=== PATIENT | female | born 1950 ===

== ENCOUNTER 2017-04-26 14:11 | Inpatient (IN) | payer MEDICARE, OTHER ==
[2017-04-26 14:11] VITALS: BMI 27.3
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
--- NOTE | 2017-04-26 18:24 | RAD ---
HISTORY: admit COMPARISON: Two FINDINGS: LUNGS: No active pulmonary disease. PLEURA: No significant pleural effusion identified, no pneumothorax apparent. CARDIOVASCULAR: Normal. OSSEOUS STRUCTURES: No significant abnormalities. VISUALIZED UPPER ABDOMEN: Normal. OTHER FINDINGS: None. IMPRESSION: No active disease.
[2017-04-26 18:34] LABS: BASO % 0.5 % (0.0-2.0); EOS # 0.1 K/uL (0.0-0.7); EOS % 1.7 % (0.0-4.0); HEMOGLOBIN 11.6 g/dL (12.0-16.0); LYMPH # 1.3 K/uL (1.0-4.3); LYMPH % 14.4 % (20.0-40.0); MEAN CELL VOLUME 79.9 fl (81.0-99.0); MEAN CORPUSCULAR HEMOGLOBIN 24.5 pg (27.0-31.0); MEAN CORPUSCULAR HGB CONC 30.7 g/dL (33.0-37.0); MEAN PLATELET VOLUME 10.5 fl (7.2-11.7); MONO # 0.6 K/uL (0.0-0.8); MONO % 7.2 % (0.0-10.0); NEUT # 6.7 K/uL (1.8-7.0); NEUT % 76.2 % (50.0-75.0); RBC 4.74 Mil/uL (3.80-5.20); RED CELL DISTRIBUTION WIDTH 16.2 % (11.5-14.5); WHITE BLOOD COUNT 8.7 K/uL (4.8-10.8)
[2017-04-26 18:49] LABS: ALB/GLOB RATIO 1.3 (1.0-2.1); ALBUMIN 3.5 g/dL (3.5-5.0); ALT/SGPT 41 U/L (9-52); AST/SGOT 30 U/L (14-36); BLOOD UREA NITROGEN 15 mg/dl (7-17); CALCIUM 9.7 mg/dL (8.4-10.2); GFR AFRICAN-AMERICAN > 60; GFR NON-AFRICAN AMERICAN > 60
--- NOTE | 2017-04-26 20:20 | ED PDOC ---
- Laboratory Results Result Diagrams: 04/26/17 18:29 04/26/17 18:29 - ECG O2 Sat by Pulse Oximetry: 99 - Progress ED Course And Treament: 1999 Signed out to me pending urine. 2130 Pt. evaluated by crisis and arrangements made for admission. UA showed large leuks in urine. Cipro 500mg PO ordered. Disposition - Clinical Impression Clinical Impression: Depression - POA Present On Arrival: None - Disposition Disposition: Admitted as In-Patient Disposition Time: 21:30 Condition: STABLE Forms: [facility] (Wolof)
[2017-04-26 21:05] LABS: BARBITURATES, UR NEGATIVE (NEGATIVE); BENZODIAZEPINES, UR NEGATIVE (NEGATIVE); OPIATES, UR NEGATIVE (NEGATIVE); PHENCYCLIDINE, UR NEGATIVE (NEGATIVE); SQUAMOUS EPITHIAL < 1 /hpf (0-5); URINE BACTERIA OCC (<OCC); URINE BILIRUBIN NEGATIVE (NEGATIVE); URINE BLOOD SMALL (NEGATIVE); URINE CLARITY CLOUDY (Clear); URINE COLOR YELLOW (YELLOW); URINE GLUCOSE (UA) NEG (Normal); URINE LEUKOCYTE ESTERASE LARGE Leu/uL (Negative); URINE NITRATE NEGATIVE (NEGATIVE); URINE PROTEIN NEGATIVE (NEGATIVE); URINE UROBILINOGEN 0.2-1.0 mg/dL (0.2-1.0)
[2017-04-26 22:53] VITALS: O2SAT 97
[2017-04-27] MEDS ORDERED: Alum-Mag Hydrox-Simethicone Susp (30 mL) PO PRN (00:26)
[2017-04-27] MEDS ORDERED: Magnesium Hydroxide Susp 30 ml UD PO PRN (00:26)
[2017-04-27] MEDS ORDERED: Bismuth Subsalicylate 262 mg/15 ml Sus (240 ml) PO PRN (00:26)
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
[2017-04-27 09:00] LABS: IRON 74 ug/dL (37-170)
[2017-04-27 09:12] LABS: % IRON SATURATION 27 % (20-55); TOTAL IRON BINDING CAPACITY 273 ug/dL (250-450)
[2017-04-27] MEDS ORDERED: Influenza Vaccine 18yr & older 0.5 ML/45 MCG SYR IM ONE (10:00)
--- NOTE | 2017-04-27 19:33 | CARD ---
APPROVED REPORT EKG Measurement Heart [id number] <Conclusion> Normal sinus rhythm Normal ECG
[2017-04-28 07:07] LABS: BLOOD UREA NITROGEN 7 mg/dl (7-17); GFR AFRICAN-AMERICAN > 60; GFR NON-AFRICAN AMERICAN > 60; HDL CHOLESTEROL 80 MG/DL (30-70)
[2017-04-28 07:17] LABS: LDL CHOLESTEROL 53 mg/dL (0-129)
[2017-04-28 07:23] LABS: T4 11.3 ug/dl (5.5-11.0)
--- NOTE | 2017-04-28 14:06 | PCM.PYCHPN ---
Psychiatric Progress Note - Psychiatric Progress Note Patient seen today, length of contact: pt seen and evaluated Patient Chief Complaint: pt has remained very depressed with a very sad affect..pt is also very anxious and gets restless at times Medication Change: No Medical Record Reviewed: Yes Mental Status Examination - Cognitive Function Orientation: Person, Place Memory: Intact Attention: Poor Concentration: Poor Association: WNL Fund of Knowledge: WNL - Mood Mood: Depressed, Anxious - Speech Speech: Appropriate - Suicidal Ideation Suicidal Ideation: No - Homicidal Ideation Homicidal Ideation: No Goal/Treatment Plan - Goal/Treatment Plan Progress Toward Problem(s) and Goals/Treatment Plan: will continue to titrate meds and increase celexa to 20 mg daily to stabilize the anxiety and depression. and engage pt in unit regimen.
[2017-04-28 22:23] LABS: FOLATE 10.6 ng/mL
--- NOTE | 2017-04-29 09:45 | PCM.PYCHPN ---
Psychiatric Progress Note - Psychiatric Progress Note Patient seen today, length of contact: Patient evaluated, case discussed with team, chart reviewed Patient Chief Complaint: "I'm depressed." Problems Identified/Issues Discussed: Patient reports that she feels depressed and anxious. She expressed wishes that she would and expressed ideation to overdose on pills. Patient was able to contract for safety at this time. She also reported intermittent visual hallucinations of evil shadows that stare at her. We discussed starting the patient back on Lexapro, which she took in the past for depression. We also discussed starting Risperdal for psychosis and Klonopin for anxiety. Patient believes her primary issue is her nerves. Medication Change: Yes (Start Lexapro 10 mg PO Daily, Risperdal 0.5 mg PO HS, Klonopin 0.25 mg Q12) Medical Record Reviewed: Yes Consults ordered or reviewed: Medicine consult Mental Status Examination - Cognitive Function Orientation: Person, Place, Situation, Time Memory: Intact Attention: Poor Concentration: Poor Association: WNL Fund of Knowledge: WNL Decription of patient's judgement and insights: Poor I/J - Mood Mood: Depressed, Anxious - Affect Affect: Depressed, Other (Labile) - Speech Speech: Appropriate - Formal Thought Process Formal Thought Process: Hallucinations, Paranoia Psychotic Thoughts and Behaviors: +Paranoia, +Intermittent VH - Suicidal Ideation Suicidal Ideation: Yes Plan: Overdose on pills - Homicidal Ideation Homicidal Ideation: No Goal/Treatment Plan - Goal/Treatment Plan Need for Continued Stay: Remain at risks for inpatient hospitalization, Severe depression anxiety, Discharge may exacerbated symptoms, Severe functional impairment Progress Toward Problem(s) and Goals/Treatment Plan: Major Depressive Disorder w/ Psychotic features; MARYJO; r/o schizoaffective disorder; patient needs acute inpatient hospitalization for treatment and safety -Start Lexapro 10 mg PO Daily, Klonopin 0.25 mg PO Q12, Risperdal 0.5 mg PO HS; r/b/se reviewed with patient -Medicine consult -Individual and group therapy -Psychoeducation -Disposition planning Estimated Date of D/C: 05/06/17 - Smoking Cessation Smoking Cessation Initiated: No Reason for not providing: Not indicated
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
[2017-04-30] MEDS ORDERED: Trimethobenzamide 200 mg/2 mL Inj IM ONE (00:17)
--- NOTE | 2017-04-30 09:51 | PCM.PYCHPN ---
Psychiatric Progress Note - Psychiatric Progress Note Patient seen today, length of contact: Patient evaluated, case discussed with team, chart reviewed Patient Chief Complaint: "I'm depressed." Problems Identified/Issues Discussed: Patient reports that she continues to feel depressed and anxious. She denies current ideation to harm herself or others. She denies current paranoia, but she continues to have bizarre affect at times. Patient reported chest pain this morning, had stat EKG and labs currently pending. Will be seen and evaluted by hospital medical assistant. Medication Change: No Medical Record Reviewed: Yes Consults ordered or reviewed: Medicine consult Mental Status Examination - Cognitive Function Orientation: Person, Place, Situation, Time Memory: Intact Attention: Poor Concentration: Poor Association: WNL Fund of Knowledge: WNL Decription of patient's judgement and insights: Poor I/J - Mood Mood: Depressed, Anxious - Affect Affect: Depressed - Speech Speech: Appropriate - Formal Thought Process Formal Thought Process: Paranoia Psychotic Thoughts and Behaviors: +Paranoia - Suicidal Ideation Suicidal Ideation: No - Homicidal Ideation Homicidal Ideation: No Goal/Treatment Plan - Goal/Treatment Plan Need for Continued Stay: Remain at risks for inpatient hospitalization, Severe depression anxiety, Discharge may exacerbated symptoms, Severe functional impairment Progress Toward Problem(s) and Goals/Treatment Plan: Major Depressive Disorder w/ Psychotic features; MARYJO; r/o schizoaffective disorder; patient needs acute inpatient hospitalization for treatment and safety -Continue Lexapro 10 mg PO Daily, Klonopin 0.25 mg PO Q12, Risperdal 0.5 mg PO HS; r/b/se reviewed with patient -Medicine consult -Individual and group therapy -Psychoeducation -Disposition planning Estimated Date of D/C: 05/06/17 - Smoking Cessation Smoking Cessation Initiated: No Reason for not providing: Not indicated
[2017-04-30 10:28] LABS: BASO % 0.4 % (0.0-2.0); EOS % 0.5 % (0.0-4.0); MEAN CORPUSCULAR HEMOGLOBIN 24.7 pg (27.0-31.0); MEAN CORPUSCULAR HGB CONC 31.8 g/dL (33.0-37.0); MEAN PLATELET VOLUME 9.9 fl (7.2-11.7); MONO # 0.7 K/uL (0.0-0.8); MONO % 6.6 % (0.0-10.0); NEUT # 8.3 K/uL (1.8-7.0); NEUT % 82.5 % (50.0-75.0); NRBC % 0.1 % (0.0-0.0); RBC 5.28 Mil/uL (3.80-5.20); RED CELL DISTRIBUTION WIDTH 15.2 % (11.5-14.5)
[2017-04-30 10:33] LABS: MEAN CELL VOLUME 77.7 fl (81.0-99.0)
[2017-04-30 10:50] LABS: BLOOD UREA NITROGEN 6 mg/dl (7-17); CALCIUM 9.5 mg/dL (8.4-10.2); GFR AFRICAN-AMERICAN > 60; GFR NON-AFRICAN AMERICAN > 60
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
--- NOTE | 2017-05-01 11:40 | CARD ---
APPROVED REPORT EKG Measurement Heart [id number] <Conclusion> Sinus rhythm with marked sinus arrhythmia Otherwise normal ECG
[2017-05-01] MEDS ORDERED: Bismuth Subsalicylate 262 mg/15 ml Sus (240 ml) PO PRN (13:52)
[2017-05-01] MEDS ORDERED: Magnesium Hydroxide Susp 30 ml UD PO PRN (13:52)
[2017-05-01] MEDS ORDERED: Alum-Mag Hydrox-Simethicone Susp (30 mL) PO PRN (13:52)
--- NOTE | 2017-05-01 13:54 | PCM.PSYCH ---
Initial Psychiatric Evaluation - Initial Psychiatric Evaluation Type of Admission: Voluntary Legal Status: Capacity, Guardian Chief Complaint (in patient's own words): "I'm depressed." Patient's Reaction to Hospitalization: 66 year old female patient with PMHx of HTN, was initially admitted to the psychiatry unit for depression w/ psychosis, then transferred to the medical unit after she had chest pain and hyponatremia and then was transferred back to the psychiatry unit for continued treatment of her depression w/ psychosis. She denies current ideation to harm herself but continues to report severe depression. PMHx: HTN PSHx: x 2 Allergies: Tetracycline, Olanzapine, Doxepin SHx: Denies of smoking, EtOH or illicit drug usage Current Medications: Active Medications Generic Name Dose Route Start Last Admin Trade Name Freq PRN Reason Stop Dose Admin Acetaminophen 650 mg 05/01/17 13:52 Tylenol 325mg Tab PO Q4 PRN Pain, moderate (4-7) Al Hydrox/Mg Hydrox/Simethicone 30 ml 05/01/17 13:52 Maalox Plus 30 Ml PO Q4 PRN Dyspepsia Amlodipine Besylate 5 mg 04/29/17 14:30 04/30/17 08:43 Norvasc PO 5 mg DAILY ZECHARIAH Administration Bismuth Subsalicylate 524 mg 05/01/17 13:52 Pepto-Bismol PO Q4 PRN Diarrhea Clonazepam 0.25 mg 04/29/17 21:00 04/30/17 08:44 Klonopin PO 0.25 mg Q12 ZECHARIAH Administration Escitalopram Oxalate 10 mg 04/30/17 09:00 04/30/17 08:45 Lexapro PO 10 mg DAILY ZECHARIAH Administration Lorazepam 0.5 mg 04/27/17 00:26 Ativan PO 05/11/17 00:27 Q6 PRN Anixety/Agitation Lorazepam 0.5 mg 05/01/17 13:52 Ativan PO 05/15/17 13:53 Q6 PRN Anixety/Agitation Magnesium Hydroxide 30 ml 05/01/17 13:52 Milk Of Magnesia PO HS PRN Constipation Risperidone 0.5 mg 04/29/17 22:00 04/29/17 21:23 Risperdal Tab PO 0.5 mg HS ZECHARIAH Administration Past Psychiatric History - Past Psychiatric History Prior Professional Help: Outpatient psychiatric treatment Pertinent Medical Hx (Current Medical&Sleep Prob, Allergies): Allergies Allergy/AdvReac Type Severity Reaction Status Date / Time doxepin [From Sinequan] Allergy RASH Verified 04/30/17 11:25 olanzapine [From Zyprexa] Allergy RASH Verified 04/30/17 11:25 Tetracyclines Allergy RASH Verified 04/30/17 11:25 Escitalopram [Lexapro] 10 mg PO DAILY tab 04/30/17 LORazepam [Ativan] 0.5 mg PO Q6H PRN 04/30/17 amLODIPine [Norvasc] 5 mg PO DAILY tab 04/30/17 clonazePAM [Klonopin] 0.25 mg PO Q12 tab 04/30/17 risperiDONE [RisperDAL Tab] 0.5 mg PO HS tab 04/30/17 Ondansetron ODT [Zofran ODT] 4 mg PO Q6H PRN #30 odt 05/01/17 Review of Systems - Psychiatric Psychiatric: As Per HPI, Abnormal Sleep Pattern, Anhedonia, Anxiety, Depression , Difficulty Concentrating, Irritability, Suicidal Ideation Mental Status Examination - Personal Presentation Personal Presentation: Looks older than stated age - Affect Affect: Constricted, Depressed - Motor Activity Motor Activity: Calm - Reliability in Providing Information Reliability in Providing Information: Poor, due to altered mood - Speech Speech: Coherent - Mood Mood: Depressed - Formal Thought Process Formal Thought Process: Paranoia - Hallucinations/Delusions Additional comments: +Paranoia - Obsessions/Compulsions Obsessions: No Compulsions: No - Cognitive Functions Orientation: Person, Place, Situation, Time Attention/Concentration: Attentive Judgement: Intact, as evidence by: Insight regarding need for hospitalization Memory: Recent intact, as evidence by: Ability to recall events of the day - Risk Risk: Suicidal, Diminished functioning - Strength & Assets Inventory Strength & Assets Inventory: Cooperative - Limitations Limitations: Other (Homelessness, Poverty) DSM 5 DX - DSM 5 DSM 5 Diagnosis: Major Depressive Disorder w/ psychosis - Recommended/Plan of Treatment Treatment Recommendations and Plan of Treatment: Major Depressive Disorder w/ Psychotic features; MARYJO; r/o schizoaffective disorder -Hold Lexapro -Increase Risperdal to 1 mg PO HS -Continue Klonopin 0.25 mg PO Q12 -Medicine consult -Individual and group therapy -Follow-up Na levels - Smoking Cessation Smoking Cessation Initiated: No Reason for not providing: Not indicated
[2017-05-01] MEDS ORDERED: Sodium Chloride 0.9% 1,000 ML IV SCH (14:15)
[2017-05-01 19:37] LABS: BLOOD UREA NITROGEN 6 mg/dl (7-17); CALCIUM 9.1 mg/dL (8.4-10.2); GFR AFRICAN-AMERICAN > 60; GFR NON-AFRICAN AMERICAN > 60
--- NOTE | 2017-05-01 21:31 | CP.PCM.PN ---
Subjective - Date & Time of Evaluation Date of Evaluation: 05/01/17 Time of Evaluation: 21:31 - Subjective Subjective: Called to evaluate this patient with chest pain and elevated blood pressures Pain at left chest constant, non radiating, 10/10 intensity Exam: General: Awake, alert, No respiratory distress Resp: Clear CVS: S1 S2 RRR Abd: Flat, Soft Nontender Ext: no edema Neuro: Non focal EKG: Sinus rhythm with sinus Arrhythmia 98/min - Troponin: 0.0370 - CPK : 189 A&P #. Chest Pain of angina type r/o ACS - Sublingual NG given and the pain was relieved with mild headache as adverse effect. - Troponin was negative - Decision made to place nitro paste 0.5inch to anterior chest wall. If no further Pain the patient could be placed on Nitro patch daily. #: Elevated Blood pressure which was combination of patient being hypertensive and the pain. with the relief of the pain, the Blood pressure decreased Walter Coburn MD Objective - Vital Signs/Intake and Output Vital Signs (last 24 hours): Temp Pulse Resp BP Pulse Ox 98.1 F 100 H 18 129/80 97 05/01/17 15:08 05/01/17 15:08 05/01/17 15:08 05/01/17 15:08 04/26/17 22:53 - Medications Medications: Current Medications Acetaminophen (Tylenol 325mg Tab) 650 mg PO Q4 PRN PRN Reason: Pain, moderate (4-7) Al Hydrox/Mg Hydrox/Simethicone (Maalox Plus 30 Ml) 30 ml PO Q4 PRN PRN Reason: Dyspepsia Amlodipine Besylate (Norvasc) 5 mg PO DAILY COUNTS INCLUDE 234 BEDS AT THE [facility] Last Admin: 04/30/17 08:43 Dose: 5 mg Bismuth Subsalicylate (Pepto-Bismol) 524 mg PO Q4 PRN PRN Reason: Diarrhea Clonazepam (Klonopin) 0.25 mg PO Q12 COUNTS INCLUDE 234 BEDS AT THE [facility] Last Admin: 04/30/17 08:44 Dose: 0.25 mg Escitalopram Oxalate (Lexapro) 10 mg PO DAILY COUNTS INCLUDE 234 BEDS AT THE [facility] Last Admin: 04/30/17 08:45 Dose: 10 mg Ceftriaxone Sodium 1,000 mg/ (Sodium Chloride) 100 mls @ 100 mls/hr IVPB DAILY COUNTS INCLUDE 234 BEDS AT THE [facility] PRN Reason: Protocol Stop: 05/04/17 09:01 Lorazepam (Ativan) 0.5 mg PO Q6 PRN PRN Reason: Anixety/Agitation Stop: 05/15/17 13:53 Magnesium Hydroxide (Milk Of Magnesia) 30 ml PO HS PRN PRN Reason: Constipation Ondansetron HCl (Zofran Odt) 4 mg PO Q8H PRN PRN Reason: Nausea/Vomiting Risperidone (Risperdal Tab) 1 mg PO HS ZECHARIAH - Labs Labs: 04/30/17 10:24 05/01/17 19:00
[2017-05-01] MEDS ORDERED: Nitroglycerin 2% Ointment Foilpak UD TOP STA (21:33)
[2017-05-01 23:04] LABS: TROPONIN I 0.037 ng/mL (0.00-0.120)
[2017-05-02 05:43] VITALS: BP 147/92; PULSE 87; RESP 19; TEMP 97.2
[2017-05-02 07:28] LABS: ALB/GLOB RATIO 1.2 (1.0-2.1); ALBUMIN 3.6 g/dL (3.5-5.0); ALT/SGPT 28 U/L (9-52); AST/SGOT 26 U/L (14-36); BLOOD UREA NITROGEN 6 mg/dl (7-17); CALCIUM 9.2 mg/dL (8.4-10.2); GFR AFRICAN-AMERICAN > 60; GFR NON-AFRICAN AMERICAN > 60
[2017-05-02 07:49] LABS: HEMOGLOBIN 12.9 g/dL (12.0-16.0); MEAN CELL VOLUME 77.9 fl (81.0-99.0); MEAN CORPUSCULAR HEMOGLOBIN 24.6 pg (27.0-31.0); MEAN CORPUSCULAR HGB CONC 31.6 g/dL (33.0-37.0); RBC 5.24 Mil/uL (3.80-5.20); RED CELL DISTRIBUTION WIDTH 15.3 % (11.5-14.5); WHITE BLOOD COUNT 12.6 K/uL (4.8-10.8)
[2017-05-02] MEDS ORDERED: Nitroglycerin 0.1 mg/hr Top Patch TD SCH (09:00)
[2017-05-02] MEDS ORDERED: Sodium Chloride 0.9% 1,000 ML IV SCH (09:15)
--- NOTE | 2017-05-02 09:23 | PCM.PYCHDC ---
Mental Status Examination - Mental Status Examination Orientation: Person, Place, Situation, Time Mood: Depressed Affect: Constricted, Depressed Description of patient's judgement and insight: Poor I/J Psychotic Thoughts and Behaviors: +Paranoia Suicidal Ideation: No Current Homicidal Ideation?: No Discharge Summary - Discharge Note Reason for Hospitalization: 66 year old female patient with PMHx of HTN, was initially admitted to the psychiatry unit for depression w/ psychosis, then transferred to the medical unit after she had chest pain and hyponatremia and then was transferred back to the psychiatry unit for continued treatment of her depression w/ psychosis. She denies current ideation to harm herself but continues to report severe depression. PMHx: HTN PSHx: x 2 Allergies: Tetracycline, Olanzapine, Doxepin SHx: Denies of smoking, EtOH or illicit drug usage Laboratory Data: Abnormal Lab Results 05/01/17 05/01/17 05/02/17 19:00 22:30 06:15 WBC 12.6 H RBC 5.24 H Hgb 12.9 Hct 40.8 MCV 77.9 L MCH 24.6 L MCHC 31.6 L RDW 15.3 H Plt Count 180 Sodium 125 L Potassium 3.9 Chloride 91 L Carbon Dioxide 24 Anion Gap 14 BUN 6 L Creatinine 0.6 L Est GFR ( Amer) > 60 Est GFR (Non-Af Amer) > 60 Random Glucose 162 H Serum Osmolality Calcium 9.1 Total Bilirubin AST ALT Alkaline Phosphatase Total Creatine Kinase 189 H Troponin I 0.0370 Total Protein Albumin Globulin Albumin/Globulin Ratio Ur Random Sodium Ur Random Potassium 05/02/17 05/02/17 05/02/17 06:15 06:15 08:52 WBC RBC Hgb Hct MCV MCH MCHC RDW Plt Count Sodium 122 L Potassium 4.2 Chloride 90 L Carbon Dioxide 22 Anion Gap 14 BUN 6 L Creatinine 0.6 L Est GFR ( Amer) > 60 Est GFR (Non-Af Amer) > 60 Random Glucose 116 H Serum Osmolality 254 L Calcium 9.2 Total Bilirubin 1.1 AST 26 ALT 28 Alkaline Phosphatase 64 Total Creatine Kinase Troponin I < 0.0120 Total Protein 6.6 Albumin 3.6 Globulin 3.0 Albumin/Globulin Ratio 1.2 Ur Random Sodium 166 Ur Random Potassium 37.2 Consultations:: List each consultation separately and include: 1. Reason for request. 2. Findings. 3. Follow-up Consultations: Medicine consult Summary of Hospital Course include:: 1. Description of specific treatment plan utilized for patients during their course of treatmen. 2. Summarize the time- course for resolution of acute symptoms and/or regressed behaviors. 3. Describe issues identified and worked on during hospitalization. 4. Describe medication utilized. 5. Describe medical problems identified and treated. 6. Reassessment of suicide risk Summary of Hospital Course: Patient had REAL ESTATE ANALYST for chest pain and worsening hyponatremia, will be transferred back to the medical unit for continued treatment. Will stop all psychiatric medications at this time. - Diagnosis (1) Major depressive disorder Current Visit: Yes Status: Chronic - Final Diagnosis (DSM 5) Condition upon Discharge: STABLE DSM 5: Major Depressive Disorder w/ psychotic features Disposition: Trans to Other Acute Care Hosp Follow-up Treatment Plan: Major Depressive Disorder w/ Psychotic features; MARYJO; r/o schizoaffective disorder Patient had [employer] ESTATE ANALYST for chest pain and worsening hyponatremia, will be transferred back to the medical unit for continued treatment. Will stop all psychiatric medications at this time. - Smoking Cessation Smoking Cessation Medication prescribed: No Reason for not providing: Not indicated - Antipsychotic Medications Pt discharged on 2 or more routine antipsychotic medications: No
[2017-05-02 09:28] LABS: HEMOGLOBIN 13.5 g/dL (12.0-16.0); MEAN CELL VOLUME 78.1 fl (81.0-99.0); MEAN CORPUSCULAR HEMOGLOBIN 24.6 pg (27.0-31.0); MEAN CORPUSCULAR HGB CONC 31.5 g/dL (33.0-37.0); RBC 5.47 Mil/uL (3.80-5.20); RED CELL DISTRIBUTION WIDTH 15.4 % (11.5-14.5); WHITE BLOOD COUNT 12.7 K/uL (4.8-10.8)
[2017-05-02 09:38] LABS: INR 0.9 (0.9-1.2); PROTHROMBIN TIME 10.2 Seconds (9.8-13.1)
[2017-05-02 09:39] LABS: PARTIAL THROMBOPLASTIN TIME 28.6 Seconds (25.6-37.1)
[2017-05-02 09:46] LABS: ALB/GLOB RATIO 1.4 (1.0-2.1); ALBUMIN 4.1 g/dL (3.5-5.0); ALT/SGPT 36 U/L (9-52); AST/SGOT 25 U/L (14-36); BLOOD UREA NITROGEN 6 mg/dl (7-17); CALCIUM 9.8 mg/dL (8.4-10.2); GFR AFRICAN-AMERICAN > 60; GFR NON-AFRICAN AMERICAN > 60
--- NOTE | 2017-05-02 09:49 | PCM.RRT ---
<Schuyler Kyle - Last Filed: 05/02/17 10:04> ULTIMATE [employer]OPS REFEREE Nurse Assessment - Situation ULTIMATE HOOPS REFEREE Responder Arrival Time: 08:58 ULTIMATE HOOPS REFEREE Reason for Call: Chest Pain, Hypertension ULTIMATE HOOPS REFEREE Called By: RN I.Reason for ULTIMATE HOOPS REFEREE - A) Acute Change in Patient: (Select all that apply): Chest Pain Subjective: ULTIMATE HOOPS REFEREE Time: 08:58 ULTIMATE HOOPS REFEREE Arrival Time: 08:59 ULTIMATE HOOPS REFEREE Location: [facility]- S: ULTIMATE HOOPS REFEREE was called by RN on a 66 y/o F who was complaining of chest pain and vomiting. Pt was found lying on bed, in supine position with a nurses holding a bucket containing non-bloody watery vomit. A per nurse, pt has been complaining of nausea for the past few days with very few episodes of vomiting that consisted of clear saliva-like liquid in very scant quantity. -Pt was admitted to psychiatry rehabilitation unit for severe depression with psychotic features. Serum sodium has been low for the past few days. O: >Vitals signs: BP 197/133, HR 105, Sat O2 99%. >PE: -HEENT: atraumatic, normocephalic, moist mucous membrane. -CV: RRR, S1 and S2 present. -Lungs: CTAB. -ABD: soft, non-distended, tenderness on RUQ and epigastric area, NO guarding or rebound tenderness. -EXT: NO cyanosis, NO edema, pulses 2+ bilaterally on radial and pedal areas. -NEURO: Pt alert, responsive and verbal at all times. ULTIMATE HOOPS REFEREE Interventions: - EKG ordered, showed no acute changes or difference with previous one from yesterday. - CBC, CMP, serum osmolality, troponin, PT/INR, PTT, TSH, urine culture, urine electrolytes, urine osmolality, - NSS 0.9% at 100 mL/hr initiated. VS at 09:14 => BP 167/105, HR 87, sat O2 100%. 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 -All psychiatric medication on HOLD. -Pt transferred to ER for further medical evaluation. -F/U labs. -F/U symptoms. ULTIMATE HOOPS REFEREE End time: 09:21 ULTIMATE HOOPS REFEREE Leader: Dr Childs. ULTIMATE HOOPS REFEREE Residents: Kia PGY-2, Mitch PGY-1, Anabella PGY-1 <Nicolle Childs - Last Filed: 05/02/17 18:51> ULTIMATE HOOPS REFEREE Nurse Assessment - Vital Signs Vital Signs: Rapid Response Vital Sign Blood Pressure 167/105 Pulse Rate 80 Respiratory Rate 16 Temperature 98.1 F Oxygen Saturation 100 - Vital Signs at end of ULTIMATE HOOPS REFEREE Vital Signs at end of ULTIMATE HOOPS REFEREE: Rapid Response End Vital Sign Blood Pressure 171/108 Pulse Rate 76 Respiratory Rate 16 Temperature 97.7 F O2 Sat by Pulse Oximetry 100 Attending/Attestation - Attestation I have personally seen and examined this patient.: Yes I have fully participated in the care of the patient.: Yes I have reviewed all pertinent clinical information, including history, physical exam and plan: Yes Notes (Text): Responded to the ULTIMATE HOOPS REFEREE with the residents\ 1.Chest Pain 2. Nausea/Vomiting 3. Hyponatremia , symptomatic - EKG : no change - pt just received Zofran -CBC.CMP,Trop,TSH,Coags,Serum,Osm,Urine Osm, Urine lytes - Transfer pt to ED for admission Discussed case with ED physician Psych PMD prsent during the event
--- NOTE | 2017-05-03 18:26 | CARD ---
APPROVED REPORT EKG Measurement Heart [id number] <Conclusion> Sinus rhythm with premature supraventricular complexes Otherwise normal ECG
--- NOTE | 2017-05-03 18:31 | CARD ---
APPROVED REPORT EKG Measurement Heart [id number] <Conclusion> Normal sinus rhythm with sinus arrhythmia Normal ECG
== END 2017-05-02 09:20 | disposition short-term general hospital (02) | DRG 885 ==
LOC: H.ER 14:11 → H.ERHOLD 22:19 → H.STEP 23:44 → UNDODISIN 04-30 11:10 → TMPLOALOC 04-30 11:10 → H.STEP 05-01 13:46
PROVIDERS: ADMIT Psychiatry & Neurology Psychiatry; ATTEND Psychiatry & Neurology Psychiatry
PROC: GZHZZZZ Group Psychotherapy (ICD-10-PCS; principal; 2017-04-26)
PROC: GZ58ZZZ Individual Psychotherapy, Cognitive-Behavioral (ICD-10-PCS; 2017-04-26)
PROC: 3E0234Z Introduction of Serum, Toxoid and Vaccine into Muscle, Percutaneous Approach (ICD-10-PCS; 2017-04-27)
DX: F32.3 Major depressive disorder, single episode, severe with psychotic features (principal); E87.1 Hypo-osmolality and hyponatremia; R45.851 Suicidal ideations; F41.9 Anxiety disorder, unspecified; Z91.14 Patient's other noncompliance with medication regimen; I10 Essential (primary) hypertension; Z91.410 Personal history of adult physical and sexual abuse; Z23 Encounter for immunization

== ENCOUNTER 2017-04-30 11:23 | Observation (INO) | payer MEDICARE, OTHER ==
[2017-04-30 11:24] VITALS: BMI 27.3
[2017-04-30] MEDS ORDERED: Sodium Chloride 0.9% 1,000 ML IV STA (11:49)
--- NOTE | 2017-04-30 11:57 | ED PDOC ---
HPI: Chest Pain Time Seen by Provider: 04/30/17 11:45 Chief Complaint (Nursing): Chest Pain Chief Complaint (Provider): Central chest pain, low sodium History Per: Patient, Other (RN) Additional Complaint(s): 66 yo female was admitted to [facility] for anxiety and depression when she began having chest pain. Labs were completed, troponin normal and low sodium. She was sent to ER for further evaluation. On arrival pt denies chest pain. Pt reported chest pain again for 5 minutes. PT cannot describe pain. Past Medical History Reviewed: Historical Data, Nursing Documentation, Vital Signs - Medical History PMH: Anxiety, Depression, HTN Denies: Diabetes, Hepatitis, HIV, Seizures, Sexually Transmitted Disease - Family History Family History: States: No Known Family Hx - Living Arrangements Living Arrangements: Alone - Immunization History Hx Tetanus Toxoid Vaccination: No Hx Influenza Vaccination: No Hx Pneumococcal Vaccination: No - Home Medications Home Medications: Ambulatory Orders Medication Instructions Recorded Escitalopram [Lexapro] 10 mg PO DAILY tab 04/30/17 LORazepam [Ativan] 0.5 mg PO Q6H PRN 04/30/17 amLODIPine [Norvasc] 5 mg PO DAILY tab 04/30/17 clonazePAM [Klonopin] 0.25 mg PO Q12 tab 04/30/17 risperiDONE [RisperDAL Tab] 0.5 mg PO HS tab 04/30/17 - Allergies Allergies/Adverse Reactions: Allergies Allergy/AdvReac Type Severity Reaction Status Date / Time doxepin [From Sinequan] Allergy RASH Verified 04/30/17 11:25 olanzapine [From Zyprexa] Allergy RASH Verified 04/30/17 11:25 Tetracyclines Allergy RASH Verified 04/30/17 11:25 Review of Systems ROS Statement: Except As Marked, All Systems Reviewed And Found Negative Constitutional: Negative for: Fever, Chills Cardiovascular: Positive for: Chest Pain. Negative for: Light Headedness Respiratory: Negative for: Cough, Shortness of Breath Gastrointestinal: Negative for: Nausea, Vomiting Genitourinary Female: Negative for: Dysuria Musculoskeletal: Negative for: Neck Pain Physical Exam - Reviewed Nursing Documentation Reviewed: Yes Vital Signs Reviewed: Yes - Physical Exam Appears: Positive for: Well, Non-toxic, No Acute Distress Head Exam: Positive for: ATRAUMATIC, NORMAL INSPECTION, NORMOCEPHALIC Skin: Positive for: Normal Color, Warm, DRY Eye Exam: Positive for: Normal appearance ENT: Positive for: Normal ENT Inspection Neck: Positive for: Normal, Painless ROM Cardiovascular/Chest: Positive for: Regular Rate, Rhythm Respiratory: Positive for: Normal Breath Sounds. Negative for: Accessory Muscle Use, Respiratory Distress Gastrointestinal/Abdominal: Positive for: Normal Exam, Bowel Sounds, Soft. Negative for: Tenderness Back: Positive for: Normal Inspection Extremity: Positive for: Normal ROM Neurologic/Psych: Positive for: Alert, Oriented Medical Decision Making Medical Decision Making: EKG - NSR Discussed admission with Dr. Fernandez. Fluids ordered. Disposition - Clinical Impression Clinical Impression: Chest pain, Hyponatremia - Patient ED Disposition Is Patient to be Admitted: Yes - Disposition Disposition Time: 12:48 Condition: STABLE - Pt Status Changed To: Hospital Disposition Of: Inpatient - Admit Certification Admit to Inpatient:: After my assessment, the patient will require hospitalization for at least two midnights. This is because of the severity of symptoms shown, intensity of services needed, and/or the medical risk in this patient being treated as an outpatient. - POA Present On Arrival: None
--- NOTE | 2017-04-30 12:52 | CP.PCM.HP ---
History of Present Illness - History of Present Illness History of Present Illness: 66 year old female patient with PMHx of HTN, anxiety, depression was seen and evaluated at bedside in ED after being sent from [facility] for acute chest pain accompanied with vomiting. Patient denies of having these symptoms yesterday or prior to coming to the hospital. Patient reports that she vomited this morning and has been feeling nauseous. Patient reports that she was admitted in the hospital because she has been feeling depressed. Patient denies of having any recent F/SOB/CP/headache. Denies of having any other complains at this time. PMHx: HTN, anxiety, depression PSHx: x 2 Allergies: Tetracycline, Olanzapine, Doxepin SHx: Denies of smoking, EtOH or illicit drug usage Present on Admission - Present on Admission Any Indicators Present on Admission: No Review of Systems - Constitutional Constitutional: As Per HPI Past Patient History - Past Social History Smoking Status: Never Smoked - CARDIAC Hx Hypertension: Yes - PULMONARY Hx Tuberculosis: No - NEUROLOGICAL Hx Seizures: No - HEMATOLOGICAL/ONCOLOGICAL Hx Human Immunodeficiency Virus (HIV): No - MUSCULOSKELETAL/RHEUMATOLOGICAL Hx Falls: Yes - GENITOURINARY/GYNECOLOGICAL Hx Sexually Transmitted Disorders: No - PSYCHIATRIC Hx Anxiety: Yes Hx Depression: Yes - SURGICAL HISTORY Hx Surgeries: Yes Hx Section: Yes (x2) - ANESTHESIA Hx Anesthesia: Yes Hx Anesthesia Reactions: No Hx Malignant Hyperthermia: No Meds Allergies/Adverse Reactions: Allergies Allergy/AdvReac Type Severity Reaction Status Date / Time doxepin [From Sinequan] Allergy RASH Verified 04/30/17 11:25 olanzapine [From Zyprexa] Allergy RASH Verified 04/30/17 11:25 Tetracyclines Allergy RASH Verified 04/30/17 11:25 Physical Exam - Constitutional Appears: Well, Non-toxic, No Acute Distress - Head Exam Head Exam: ATRAUMATIC - Eye Exam Eye Exam: Normal appearance Pupil Exam: NORMAL ACCOMODATION - ENT Exam ENT Exam: Normal Exam - Neck Exam Neck exam: Positive for: Full Rom, Normal Inspection - Respiratory Exam Respiratory Exam: Clear to Auscultation Bilateral, NORMAL BREATHING PATTERN. absent: Rales, Rhonchi, Wheezes - Cardiovascular Exam Cardiovascular Exam: Tachycardia, +S1, +S2. absent: Bradycardia - GI/Abdominal Exam GI & Abdominal Exam: Normal Bowel Sounds, Soft. absent: Mass, Organomegaly - Rectal Exam Rectal Exam: Deferred - Extremities Exam Extremities exam: Positive for: full ROM, normal capillary refill, normal inspection, pedal pulses present. Negative for: calf tenderness, joint swelling , pedal edema, tenderness - Back Exam Back exam: FULL ROM, NORMAL INSPECTION - Neurological Exam Neurological exam: Alert, Normal Gait, Oriented x3 - Psychiatric Exam Psychiatric exam: Normal Affect, Normal Mood - Skin Skin Exam: Intact, Normal Color, Warm Assessment & Plan - Assessment and Plan (Free Text) Assessment: 66 year old female patient with PMHx of HTN, anxiety, depression was evaluated for acute chest pain accompanied with vomiting. Plan: 1). Acute Chest pain - CXR: - no active disease - EKG: - Sinus rhythm with sinus arrhythmia - Troponin: wnl - Repeat troponin - Vital signs stable with minimal tachycardia - Monitor 2). Hyponatremia - Possibly secondary to vomiting episode - NS - repeat BMP 3). HTN - Amlodipine 5 mg PO 4). DVT PPx - SCD - Ambulating - Date & Time Date: 04/30/17 Time: 12:54
--- NOTE | 2017-04-30 12:58 | RAD ---
HISTORY: Chest pressure. COMPARISON: 04/26/2017. FINDINGS: LUNGS: No active pulmonary disease. PLEURA: No significant pleural effusion identified, no pneumothorax apparent. CARDIOVASCULAR: No radiographic findings to suggest acute or significant cardiovascular disease. OSSEOUS STRUCTURES: No significant abnormalities. VISUALIZED UPPER ABDOMEN: Normal. OTHER FINDINGS: None. IMPRESSION: No active disease. No significant interval change compared to the prior examination(s).
[2017-04-30 14:46] VITALS: RESP 18
[2017-04-30] MEDS: Sodium Chloride 0.9% 1,000 ML IV SCH (17:28)
[2017-05-01] MEDS: Sodium Chloride 0.9% 1,000 ML IV SCH (00:03)
[2017-05-01 02:36] LABS: BLOOD UREA NITROGEN 10 mg/dl (7-17); CALCIUM 9.1 mg/dL (8.4-10.2); GFR AFRICAN-AMERICAN > 60; GFR NON-AFRICAN AMERICAN > 60
[2017-05-01 05:58] LABS: BASO % 0.4 % (0.0-2.0); EOS # 0.1 K/uL (0.0-0.7); EOS % 0.8 % (0.0-4.0); HEMOGLOBIN 12.5 g/dL (12.0-16.0); LYMPH # 1.2 K/uL (1.0-4.3); LYMPH % 10.9 % (20.0-40.0); MEAN CELL VOLUME 77.5 fl (81.0-99.0); MEAN CORPUSCULAR HEMOGLOBIN 24.6 pg (27.0-31.0); MEAN CORPUSCULAR HGB CONC 31.8 g/dL (33.0-37.0); MONO # 0.9 K/uL (0.0-0.8); MONO % 8.2 % (0.0-10.0); NEUT # 9.1 K/uL (1.8-7.0); NEUT % 79.7 % (50.0-75.0); RBC 5.09 Mil/uL (3.80-5.20); RED CELL DISTRIBUTION WIDTH 15.3 % (11.5-14.5); WHITE BLOOD COUNT 11.4 K/uL (4.8-10.8)
[2017-05-01 08:05] LABS: URINE AMORPHOUS SEDIMENT FEW /ul (<OCC); URINE BACTERIA RARE (<OCC); URINE BILIRUBIN NEGATIVE (NEGATIVE); URINE BLOOD SMALL (NEGATIVE); URINE CLARITY CLOUDY (Clear); URINE COLOR YELLOW (YELLOW); URINE GLUCOSE (UA) NEG (Normal); URINE LEUKOCYTE ESTERASE SMALL Leu/uL (Negative); URINE NITRATE NEGATIVE (NEGATIVE); URINE PROTEIN 30 mg/dL (NEGATIVE); URINE UROBILINOGEN 0.2-1.0 mg/dL (0.2-1.0)
[2017-05-01 08:34] VITALS: TEMP 98.4
[2017-05-01] MEDS ORDERED: Enoxaparin 40 mg Syringe SC SCH (09:00)
--- NOTE | 2017-05-01 11:09 | CARD ---
APPROVED REPORT EKG Measurement Heart [id number] <Conclusion> Normal sinus rhythm Normal ECG
[2017-05-01 12:05] VITALS: BP 142/93; PULSE 101; O2SAT 99
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
== END 2017-05-01 14:05 ==
LOC: H.ER 11:23 → H.ERHOLD 12:35 → H.TEL 19:55
DX: R07.9 Chest pain, unspecified (principal); E87.1 Hypo-osmolality and hyponatremia; N39.0 Urinary tract infection, site not specified; F32.9 Major depressive disorder, single episode, unspecified; F41.9 Anxiety disorder, unspecified; I10 Essential (primary) hypertension; R11.2 Nausea with vomiting, unspecified
CPT/HCPCS: 36415; 71045; 80048; 81003; 84484; 85025; 87040; 87086; 93005; 96365; 99285; G0378; J0696; J1650; J2405; J7040

== ENCOUNTER 2017-05-02 09:34 | Inpatient (IN) | payer MEDICARE, OTHER ==
--- NOTE | 2017-05-02 10:24 | ED PDOC ---
HPI: General Adult Time Seen by Provider: 05/02/17 09:56 Chief Complaint (Nursing): Abdominal Pain Chief Complaint (Provider): vomiting, chest pain History Per: Patient, Other (Dr Childs) History/Exam Limitations: clinical condition Onset/Duration Of Symptoms: Gradual Current Symptoms Are (Timing): Still Present Recently: Hospitalized Additional Complaint(s): 66yo female c/o vomiting, chest tightness. Was transferred from [facility]. D/w Dr Childs, found to have hyponatremia on [facility] floor possibly contributing to vomiting. Past Medical History Vital Signs: Last Vital Signs Temp 97.3 F L 05/06/17 08:38 Pulse 98 H 05/06/17 08:28 Resp 20 05/06/17 08:38 BP 128/85 05/06/17 08:38 Pulse Ox 98 05/06/17 13:23 - Medical History PMH: Anxiety, Depression, HTN Denies: Diabetes, Hepatitis, HIV, Chronic Kidney Disease, Seizures, Sexually Transmitted Disease - Surgical History Other surgeries: unknown - Family History Family History: States: Unknown Family Hx - Immunization History Hx Tetanus Toxoid Vaccination: No Hx Influenza Vaccination: No Hx Pneumococcal Vaccination: No - Home Medications Home Medications: Ambulatory Orders Medication Instructions Recorded LORazepam [Ativan] 0.5 mg PO Q8 PRN tab 05/06/17 Lactobacillus Acidophilus [Bacid 1 cap PO BID cap 05/06/17 Acidophilus] Metoprolol Tartrate [Lopressor] 25 mg PO Q12 tab 05/06/17 Mirtazapine [Remeron] 15 mg PO HS tab 05/06/17 Pantoprazole [Protonix EC Tab] 40 mg PO DAILY ect 05/06/17 amLODIPine [Norvasc] 10 mg PO DAILY tab 05/06/17 risperiDONE [RisperDAL Tab] 0.5 mg PO HS tab 05/06/17 - Allergies Allergies/Adverse Reactions: Allergies Allergy/AdvReac Type Severity Reaction Status Date / Time doxepin [From Sinequan] Allergy RASH Verified 04/30/17 11:25 olanzapine [From Zyprexa] Allergy RASH Verified 04/30/17 11:25 Tetracyclines Allergy RASH Verified 04/30/17 11:25 Review of Systems Review Of Systems: ROS cannot be obtained secondary to pt's inabilty to answer questions. Physical Exam - Reviewed Nursing Documentation Reviewed: Yes Vital Signs Reviewed: Yes - Physical Exam Appears: Positive for: Non-toxic (mild confusion) Head Exam: Positive for: ATRAUMATIC, NORMAL INSPECTION, NORMOCEPHALIC Skin: Positive for: Normal Color, Warm, DRY Eye Exam: Positive for: EOMI, Normal appearance, PERRL ENT: Positive for: Normal ENT Inspection Neck: Positive for: Normal, Painless ROM Cardiovascular/Chest: Positive for: Regular Rate, Rhythm Respiratory: Positive for: CNT, Normal Breath Sounds Gastrointestinal/Abdominal: Positive for: Normal Exam, Bowel Sounds, Soft Back: Positive for: Normal Inspection Extremity: Positive for: Normal ROM Neurologic/Psych: Positive for: Alert, Mood/Affect (flat poor insight). Negative for: Oriented, Aphasia, Facial Droop - Laboratory Results Result Diagrams: 05/05/17 07:00 05/05/17 07:00 - ECG O2 Sat by Pulse Oximetry: 98 Medical Decision Making Medical Decision Making: labs from [facility] were reviewed admitted to hospitalist for medical management Disposition - Clinical Impression Clinical Impression: Hyponatremia, Chest pain - Patient ED Disposition Is Patient to be Admitted: Yes Counseled Patient/Family Regarding: Studies Performed - Disposition Disposition Time: 10:51 Condition: FAIR - Pt Status Changed To: Hospital Disposition Of: Inpatient - Admit Certification Admit to Inpatient:: After my assessment, the patient will require hospitalization for at least two midnights. This is because of the severity of symptoms shown, intensity of services needed, and/or the medical risk in this patient being treated as an outpatient. - POA Present On Arrival: None
--- NOTE | 2017-05-02 10:30 | CP.PCM.HP ---
History of Present Illness - History of Present Illness History of Present Illness: Chief Complaint : Chest Pain, Nausea/Vomiting HPI: 66 y/o lady with hx of HTN, Depression with Psychosis, admitted to [facility] for Depression and Suicidal ideation. This morning, an DIGITAL PUBLISHING SPECIALIST was called bec pt was complaining of Chest pain. CP substernal , 5/10, nonradiating accompanied by nausea and vomiting. She admits to slight right mid abdominal pain. Denies SOB, no palpitation. Noted hyponatremia with [id number] on her labs. EKG done showed no change. Troponin done was negative . She has no fever however Urinalysis showed large Leukoesterase , pyuria and some hematuria. Present on Admission - Present on Admission Any Indicators Present on Admission: No Review of Systems - Review of Systems All systems: reviewed and no additional remarkable complaints except - Constitutional Constitutional: Weakness. absent: Chills, Fever - EENT Eyes: absent: Change in Vision Ears: absent: Decreased Hearing Nose/Mouth/Throat: absent: Nasal Congestion - Cardiovascular Cardiovascular: Chest Pain. absent: Dyspnea on Exertion, Edema, Irregular Heart Rhythm, Lightheadedness, Orthopnea, Palpitations, Paroxysmal Nocturnal Dyspnea - Respiratory Respiratory: absent: Cough, Dyspnea, Hemoptysis, Dyspnea on Exertion - Gastrointestinal Gastrointestinal: Abdominal Pain, Nausea, Vomiting. absent: Hematemesis, Melena - Genitourinary Genitourinary: Hematuria, Pyuria, Freq UTI. absent: Dysuria - Menstruation Menstruation: Post Menopausal - Musculoskeletal Musculoskeletal: absent: Arthralgias, Joint Swelling - Integumentary Integumentary: absent: Rash - Neurological Neurological: Weakness. absent: Abnormal Hearing, Paresthesias, Syncope, Vertigo - Psychiatric Psychiatric: Anxiety, Depression, Suicidal Ideation - Endocrine Endocrine: absent: Polydipsia, Polyphagia, Polyuria - Hematologic/Lymphatic Hematologic: absent: Easy Bleeding, Easy Bruising Past Patient History - Infectious Disease Hx of Infectious Diseases: None - Tetanus Immunizations Tetanus Immunization: Unknown - Past Medical History & Family History Past Medical History?: Yes - Past Social History Smoking Status: Never Smoked Chewing Tobacco Use: No Cigar Use: No Alcohol: None Drugs: Denies Home Situation {Lives}: With Family - CARDIAC Hx Hypertension: Yes - PULMONARY Hx Respiratory Disorders: No Hx Tuberculosis: No - NEUROLOGICAL Hx Seizures: No - HEENT Hx HEENT Problems: No - RENAL Hx Chronic Kidney Disease: No - ENDOCRINE/METABOLIC Hx Endocrine Disorders: No - HEMATOLOGICAL/ONCOLOGICAL Hx Human Immunodeficiency Virus (HIV): No - INTEGUMENTARY Hx Dermatological Problems: No - MUSCULOSKELETAL/RHEUMATOLOGICAL Hx Musculoskeletal Disorders: No Hx Falls: No - GASTROINTESTINAL Hx Gastrointestinal Disorders: No - GENITOURINARY/GYNECOLOGICAL Hx Sexually Transmitted Disorders: No - PSYCHIATRIC Hx Anxiety: Yes Hx Depression: Yes - SURGICAL HISTORY Hx Surgeries: Yes Hx Section: Yes (x2) - ANESTHESIA Hx Anesthesia: Yes Hx Anesthesia Reactions: No Hx Malignant Hyperthermia: No Meds Allergies/Adverse Reactions: Allergies Allergy/AdvReac Type Severity Reaction Status Date / Time doxepin [From Sinequan] Allergy RASH Verified 04/30/17 11:25 olanzapine [From Zyprexa] Allergy RASH Verified 04/30/17 11:25 Tetracyclines Allergy RASH Verified 04/30/17 11:25 Physical Exam - Constitutional Appears: Non-toxic, Chronically Ill - Head Exam Head Exam: NORMAL INSPECTION, NORMOCEPHALIC - Eye Exam Eye Exam: EOMI, Normal appearance, PERRL Pupil Exam: NORMAL ACCOMODATION - ENT Exam ENT Exam: Mucous Membranes Dry, Normal External Ear Exam - Neck Exam Neck exam: Positive for: Full Rom. Negative for: Meningismus - Respiratory Exam Respiratory Exam: NORMAL BREATHING PATTERN. absent: Accessory Muscle Use, Chest Wall Tenderness, Rales, Rhonchi, Wheezes, Respiratory Distress - Cardiovascular Exam Cardiovascular Exam: REGULAR RHYTHM, +S1, +S2 - GI/Abdominal Exam GI & Abdominal Exam: Normal Bowel Sounds, Soft. absent: Tenderness - Extremities Exam Extremities exam: Positive for: normal capillary refill, pedal pulses present. Negative for: calf tenderness, pedal edema - Back Exam Back exam: absent: CVA tenderness (L), CVA tenderness (R), vertebral tenderness - Neurological Exam Neurological exam: Alert, CN II-XII Intact Additional comments: oriented to person and place - Psychiatric Exam Psychiatric exam: Anxious, Depressed - Skin Skin Exam: Dry, Normal Color, Warm Results - Vital Signs Recent Vital Signs: Last Vital Signs Temp 97.8 F 05/02/17 09:38 Pulse 78 05/02/17 09:38 Resp BP 150/97 H 05/02/17 09:38 Pulse Ox 98 05/02/17 10:24 - Labs Result Diagrams: 05/02/17 12:20 - EKG Data EKG Interpreted by: Myself EKG shows normal: Sinus rhythm Rate: Normal - EKG Data When Compared to Previous EKG: No Significant Change Assessment & Plan (1) Hyponatremia with decreased serum osmolality Status: Acute Comment: Prob SIADH - Low Serum Osm, Normal Urine Osm. will start 3% NaCl - bolus 100ml in 1 hour then 20 ml x 20 hours. BMP q 4. Avoid Overcorrection - risk for Osmotic Demyelination Synd. will d/c 3% when Sodium goes up to 127. Nephrology consult. Fluid restriction. d/c Lexapro. Urine lytes, Osm. TSH normal. Glucose and TRigly normal (2) Abdominal pain Status: Acute Comment: with vomiting , had diarrhea 1 wk ago and this resolved however still vomiting , though likely vomiting is due to Hyponatremia. Abd CT and Pelvis. will also do CT of head to r/o any central cause for vomiting and Psychosis though likely due to Hyponatremia (3) UTI (urinary tract infection) Status: Acute Comment: Urinalysis with Leukoest , pyuria and some hematuria. Leukocytosis, no fever. cont IV ceftriaxone. Urine c/s. Check CT of abd to r/o Pyelo, stones causing recurrent UTI (4) Depression, psychotic Status: Chronic Comment: Psych consult. hold off on Lexapro for now due to low Sodium (5) Chest pain Status: Acute Comment: etiology to be determined. Troponin normal and EKG no change , unlikely ACS. check Ddimer to r/o PE. CXR negative. CP may just be due to vomiting. consider CTA of chset to r/o PE , eval aorta and lungs. start Protonix IV (6) HTN (hypertension) Status: Chronic Comment: cont Norvasc. will monitor in Tele (7) DVT prophylaxis Status: Acute Comment: Lovenox Decision To Admit - Pt Status Changed To: Hospital Disposition Of: Inpatient - Admit Certification Admit to Inpatient:: After my assessment, the patient will require hospitalization for at least two midnights. This is because of the severity of symptoms shown, intensity of services needed, and/or the medical risk in this patient being treated as an outpatient. - . Bed Request Type: Telemetry Admitting Physician: Nicolle Childs
[2017-05-02] MEDS ORDERED: Sodium Chloride 3% 100 ML IV SCH (10:45)
[2017-05-02] MEDS ORDERED: Sodium Chloride 3% 500 ML IV SCH ×2 (10:45)
[2017-05-02] MEDS ORDERED: Iohexol 240 (50 ml) PO ONE (10:46)
[2017-05-02] MEDS ORDERED: Potassium Chloride 20 mEq ER Tab PO ONE (11:06)
[2017-05-02 12:00] LABS: URINE BACTERIA RARE (<OCC); URINE BILIRUBIN NEGATIVE (NEGATIVE); URINE BLOOD MODERATE (NEGATIVE); URINE CLARITY SLIGHTY-CLOUDY (Clear); URINE COLOR STRAW (YELLOW); URINE GLUCOSE (UA) NEG (Normal); URINE LEUKOCYTE ESTERASE MOD Leu/uL (Negative); URINE NITRATE NEGATIVE (NEGATIVE); URINE PROTEIN NEGATIVE (NEGATIVE); URINE UROBILINOGEN 0.2-1.0 mg/dL (0.2-1.0)
[2017-05-02 12:38] LABS: CALCIUM 9.1 mg/dL (8.4-10.2); GFR AFRICAN-AMERICAN > 60; GFR NON-AFRICAN AMERICAN > 60
[2017-05-02 12:40] LABS: BLOOD UREA NITROGEN 6 mg/dl (7-17)
[2017-05-02] MEDS ORDERED: Iohexol 240 (50 ml) ONE (13:21)
[2017-05-02 15:23] VITALS: BMI 25.0
--- NOTE | 2017-05-02 17:08 | CP.PCM.CON ---
History of Present Illness - History of Present Illness History of Present Illness: Initial Nephrology Consultation: Assessment: critical euvolemic hypo-osmolar hyponatremia with high urine Na and urine osmol suggests ADH stimulation ? due to psych meds HTN depression chest pain possible UTI Plan Hypertension control with meds as ordered. increase to norvasc 10 mg/day Monitor Input/Output, serum sodium level repeat urine sodium and osmol in AM considering relatively acute/subacute drop in serum Na, will start hypertonic 3 % saline 100 mL over 1 hr and then @ 20 ml/hr for 20 hrs. monitor serum Na q 4 hrs, to stop it once serum Na 127-128 meq/L. avoid correction in serum Na more than 6-8 meq/24 hrs tomorrow onwards, will suggest fluid restriction 1200 mL/day consider alternative psych meds Glycemic control Further work up/management as per primary team Thanks for allowing me to participate in care of your patient. Will follow patient with you. Please call if any Qs. d/w team. d/w RN on floor Dr Darin Castaneda Office: [phone] Chief Complaint; chest pain HPI: Pt is a 66 F with hx of hypertension (years), depression presented with complaints of chest pain and possible UTI. also noted to have low Na 121 hence renal consulted. she has low Na 125 for last 2-3 days otherwise serum Na was 140 range 5 days before. she feels better at this time pt denies drinking excess water on SSRI ROS: Cardiovascular: No chest pain now Pulmonary: No shortness of breath Gastrointestinal: denies abdominal pain No nausea. No vomiting. Genitourinary: No pain while urinating. Denies blood in urine. All other negative Physical Examination: General Appearance: Comfortable, in no acute respiratory distress, co-operative . Vitals reviewed and noted as below Head; Atraumatic, normocephalic ENT: no ulcers no thrush. Tongue is midline. Oropharynx: no rash or ulcers. EYES: Pupils are equal, round and reactive to light accommodation. Eye muscles and extraocular movement intact. Sclera is anicteric. Neck; supple no lymphadenopathy, no thyromegaly or bruit Lungs: Normal respiratory rate/effort. Breath sounds bilateral equal and clear Heart: Normal rate. s1s2 normal. No rub or gallop. Extremities: no edema. No varicose veins Neurological: Patient is alert, awake and oriented to person, place and time. No focal deficit. Strength bilateral appropriate and equal Skin: Warm and dry. Normal turgor. No rash. Palpitation: Normal elasticity for age Abdomen: Abdomen is soft. Bowel sounds +. There is no abdominal tenderness, no guarding/rigidity no organomegaly Psych: limited insight and flat affect/mood MSK: no joint tenderness or swelling. Digits and nails normal, no deformity : kidney or bladder not palpable Labs/imaging reviewed. Past medical history, past surgical history, family history, social history, allergy reviewed and noted as below Family hx: no hx of CKD. Rest non-contributory UA: SG 1.005 urine Na 106 urine osmol 468 serum osmol 253 Past Patient History - Infectious Disease Hx of Infectious Diseases: None - Tetanus Immunizations Tetanus Immunization: Unknown - Past Medical History & Family History Past Medical History?: Yes - Past Social History Smoking Status: Never Smoked - CARDIAC Hx Cardiac Disorders: Yes Hx Hypertension: Yes - PULMONARY Hx Respiratory Disorders: No Hx Tuberculosis: No - NEUROLOGICAL Hx Neurological Disorder: No Hx Seizures: No - HEENT Hx HEENT Problems: No - RENAL Hx Chronic Kidney Disease: No - ENDOCRINE/METABOLIC Hx Endocrine Disorders: No - HEMATOLOGICAL/ONCOLOGICAL Hx Blood Disorders: No Hx AIDS: No Hx Human Immunodeficiency Virus (HIV): No - INTEGUMENTARY Hx Dermatological Problems: No - MUSCULOSKELETAL/RHEUMATOLOGICAL Hx Musculoskeletal Disorders: Yes Hx Falls: Yes (2 MON[address]S AGO [address]) - GASTROINTESTINAL Hx Gastrointestinal Disorders: No - GENITOURINARY/GYNECOLOGICAL Hx Genitourinary Disorders: No Hx Sexually Transmitted Disorders: No - PSYCHIATRIC Hx Psychophysiologic Disorder: Yes Hx Anxiety: Yes Hx Depression: Yes Hx Substance Use: No - SURGICAL HISTORY Hx Surgeries: Yes Hx Section: Yes (x2) - ANESTHESIA Hx Anesthesia: Yes Hx Anesthesia Reactions: No Hx Malignant Hyperthermia: No Meds Allergies/Adverse Reactions: Allergies Allergy/AdvReac Type Severity Reaction Status Date / Time doxepin [From Sinequan] Allergy RASH Verified 04/30/17 11:25 olanzapine [From Zyprexa] Allergy RASH Verified 04/30/17 11:25 Tetracyclines Allergy RASH Verified 04/30/17 11:25 - Medications Medications: Current Medications Sodium Chloride (Hypertonic Saline 3%) 100 mls @ 100 mls/hr IV .Q1H [facility] Stop: 05/03/17 10:40 Last Admin: 05/02/17 11:32 Dose: 100 mls/hr Sodium Chloride (Hypertonic Saline 3%) 500 mls @ 20 mls/hr IV .Q24H [facility] Stop: 05/03/17 06:46 Last Admin: 05/02/17 13:43 Dose: 20 mls/hr Ceftriaxone Sodium 1 gm/ (Sodium Chloride) 100 mls @ 100 mls/hr IVPB DAILY [facility] PRN Reason: Protocol Ondansetron HCl (Zofran Inj) 4 mg IVP Q6 PRN PRN Reason: Nausea/Vomiting Last Admin: 05/02/17 12:27 Dose: 4 mg Pantoprazole Sodium (Protonix Inj) 40 mg IVP DAILY [facility] Results - Vital Signs Recent Vital Signs: Last Vital Signs Temp 98.5 F 05/02/17 15:01 Pulse 78 05/02/17 15:01 Resp 18 05/02/17 15:01 BP 147/96 H 05/02/17 15:01 Pulse Ox 100 05/02/17 15:01 - Labs Result Diagrams: 05/02/17 12:20 Labs: Laboratory Results - last 24 hr 05/02/17 05/02/17 05/02/17 11:39 12:20 14:38 D-Dimer, Quantitative 218 Sodium 125 L Potassium 3.7 Chloride 94 L Carbon Dioxide 22 Anion Gap 13 BUN 6 L Creatinine 0.6 L Est GFR ( Amer) > 60 Est GFR (Non-Af Amer) > 60 Random Glucose 108 H Calcium 9.1 Troponin I < 0.0120 Urine Color Straw Urine Clarity Slighty-cloudy Urine pH 7.0 Ur Specific [place] 1.005 Urine Protein Negative Urine Glucose (UA) Neg Urine Ketones Trace Urine Blood Moderate Urine Nitrate Negative Urine Bilirubin Negative Urine Urobilinogen 0.2-1.0 Ur Leukocyte Esterase Mod Urine RBC (Auto) 69 H Urine Microscopic WBC 15 H Urine Bacteria Rare
[2017-05-02 19:56] LABS: BLOOD UREA NITROGEN 5 mg/dl (7-17); CALCIUM 9.9 mg/dL (8.4-10.2); GFR AFRICAN-AMERICAN > 60; GFR NON-AFRICAN AMERICAN > 60
[2017-05-02 20:33] LABS: OSMOLALITY,URINE 216 mosm/kg (300-1000); SQUAMOUS EPITHIAL < 1 /hpf (0-5); URINE BACTERIA RARE (<OCC); URINE BILIRUBIN NEGATIVE (NEGATIVE); URINE BLOOD MODERATE (NEGATIVE); URINE CLARITY SLIGHTY-CLOUDY (Clear); URINE COLOR STRAW (YELLOW); URINE GLUCOSE (UA) NEG (Normal); URINE LEUKOCYTE ESTERASE MOD Leu/uL (Negative); URINE NITRATE NEGATIVE (NEGATIVE); URINE PROTEIN NEGATIVE (NEGATIVE); URINE UROBILINOGEN 0.2-1.0 mg/dL (0.2-1.0)
[2017-05-02] MEDS ORDERED: Pneumococcal 23-Valent Vaccine IM ONE (21:00)
--- NOTE | 2017-05-02 21:14 | CT ---
EXAM: CT Head Without Intravenous Contrast CLINICAL HISTORY: 66 years old, female; Signs and symptoms; Other: Hyponatremia, chest tightness; Additional info: R/O increase icp TECHNIQUE: Axial computed tomography images of the head/brain without intravenous contrast. All CT scans at this facility use one or more dose reduction techniques, viz.: automated exposure control; ma/kV adjustment per patient size (including targeted exams where dose is matched to indication; i.e. head); or iterative reconstruction technique. Coronal and sagittal reformatted images were created and reviewed. COMPARISON: No relevant prior studies available. FINDINGS: Limitations: Motion artifact - mild. Brain: Mild atrophy. No definite intracranial hemorrhage. No mass. Few scattered foci of decreased attenuation within periventricular/subcortical white matter. No definite edema. Ventricles: No hydrocephalus. Bones/joints: Chronic deformity medial wall of LEFT orbit. No acute fracture. Soft tissues: Unremarkable. Vasculature: Minimal atherosclerotic disease of intracranial arteries. Sinuses: LEFT maxillary retention cyst. Mastoid air cells: No mastoid effusion. Orbits: Unremarkable as visualized. IMPRESSION: 1. Nonspecific white matter changes. Acute infarction may be CT occult within first 24 hours. If a focal deficit persists, consider followup CT or MRI for further evaluation. 2. Incidental/non-acute findings are described above.
[2017-05-02 22:40] LABS: BLOOD UREA NITROGEN 5 mg/dl (7-17); CALCIUM 9.8 mg/dL (8.4-10.2); GFR AFRICAN-AMERICAN > 60; GFR NON-AFRICAN AMERICAN > 60
[2017-05-03 01:15] LABS: ALB/GLOB RATIO 1.4 (1.0-2.1); ALBUMIN 3.9 g/dL (3.5-5.0); ALT/SGPT 29 U/L (9-52); AST/SGOT 22 U/L (14-36); BLOOD UREA NITROGEN 5 mg/dl (7-17); CALCIUM 9.7 mg/dL (8.4-10.2); GFR AFRICAN-AMERICAN > 60; GFR NON-AFRICAN AMERICAN > 60
[2017-05-03 03:11] LABS: BLOOD UREA NITROGEN 5 mg/dl (7-17); CALCIUM 9.4 mg/dL (8.4-10.2); GFR AFRICAN-AMERICAN > 60; GFR NON-AFRICAN AMERICAN > 60
--- NOTE | 2017-05-03 04:01 | CP.PCM.PCO ---
Physician Communication Note - Physician Communication Note Physician Communication Note: Serium Sodium trend
[2017-05-03 06:22] LABS: BLOOD UREA NITROGEN 5 mg/dl (7-17); CALCIUM 9.4 mg/dL (8.4-10.2); GFR AFRICAN-AMERICAN > 60; GFR NON-AFRICAN AMERICAN > 60
[2017-05-03 06:26] LABS: MEAN CELL VOLUME 77.2 fl (81.0-99.0); MEAN CORPUSCULAR HEMOGLOBIN 25.2 pg (27.0-31.0); MEAN CORPUSCULAR HGB CONC 32.6 g/dL (33.0-37.0); RBC 5.17 Mil/uL (3.80-5.20); RED CELL DISTRIBUTION WIDTH 15.4 % (11.5-14.5); WHITE BLOOD COUNT 13.9 K/uL (4.8-10.8)
[2017-05-03] MEDS ORDERED: Potassium Chloride 20 mEq ER Tab PO ONE ×2 (08:00→11:32)
--- NOTE | 2017-05-03 09:09 | CP.PCM.PN ---
Subjective - Date & Time of Evaluation Date of Evaluation: 05/03/17 Time of Evaluation: 09:07 - Subjective Subjective: Follow up renal consult: Assessment: critical euvolemic hypo-osmolar hyponatremia with high urine Na and urine osmol suggests ADH stimulation ? due to psych meds HTN depression chest pain possible UTI Plan BP improved na at goal for past 24 hours. Will reorder stat bmp now. Fluid restrict 1.5L and monitor na q4. will recheck urine lytes to see how she is handling water consider alternative psych meds to what she was on S: seen and examined no complaitns Physical Examination: General Appearance: Comfortable, in no acute respiratory distress, co-operative . Vitals reviewed and noted as below Head; Atraumatic, normocephalic ENT: no ulcers no thrush. Tongue is midline. Oropharynx: no rash or ulcers. EYES: Pupils are equal, round and reactive to light accommodation. Eye muscles and extraocular movement intact. Sclera is anicteric. Neck; supple no lymphadenopathy, no thyromegaly or bruit Lungs: Normal respiratory rate/effort. Breath sounds bilateral equal and clear Heart: Normal rate. s1s2 normal. No rub or gallop. Extremities: no edema. No varicose veins Neurological: Patient is alert, awake and oriented to person, place and time. No focal deficit. Strength bilateral appropriate and equal Skin: Warm and dry. Normal turgor. No rash. Palpitation: Normal elasticity for age Abdomen: Abdomen is soft. Bowel sounds +. There is no abdominal tenderness, no guarding/rigidity no organomegaly Psych: limited insight and flat affect/mood MSK: no joint tenderness or swelling. Digits and nails normal, no deformity : kidney or bladder not palpable Objective - Vital Signs/Intake and Output Vital Signs (last 24 hours): Temp Pulse Resp BP Pulse Ox 98.2 F 105 H 20 137/89 99 05/03/17 08:29 05/03/17 08:29 05/03/17 08:29 05/03/17 08:29 05/03/17 08:29 - Medications Medications: Current Medications Amlodipine Besylate (Norvasc) 10 mg PO DAILY [facility] Ceftriaxone Sodium 1 gm/ (Sodium Chloride) 100 mls @ 100 mls/hr IVPB DAILY [facility] PRN Reason: Protocol Last Admin: 05/02/17 16:13 Dose: 100 mls/hr Ondansetron HCl (Zofran Inj) 4 mg IVP Q6 PRN PRN Reason: Nausea/Vomiting Last Admin: 05/02/17 12:27 Dose: 4 mg Pantoprazole Sodium (Protonix Inj) 40 mg IVP DAILY [facility] Last Admin: 05/02/17 17:41 Dose: 40 mg - Labs Labs: 05/03/17 05:15 05/03/17 05:15
[2017-05-03 11:00] LABS: BLOOD UREA NITROGEN 4 mg/dl (7-17); GFR AFRICAN-AMERICAN > 60; GFR NON-AFRICAN AMERICAN > 60
[2017-05-03] MEDS ORDERED: Potassium Chloride 20 mEq/15 ml LIQ UD PO ONE (11:30)
--- NOTE | 2017-05-03 11:36 | CP.PCM.PN ---
Subjective - Date & Time of Evaluation Date of Evaluation: 05/03/17 Time of Evaluation: 11:00 - Subjective Subjective: Pt is alert, oriented still with some nausea , vomiting resolved Sodium 125 no diarrhea but had soft stool this am no abd pain, sl discomfort lower abd denies CP no SOB no headache no dizziness no focal weakness according to RN - pt was crying earlier - depressed about not having a home. Objective - Vital Signs/Intake and Output Vital Signs (last 24 hours): Temp Pulse Resp BP Pulse Ox 98.1 F 97 H 18 151/77 H 94 L 05/03/17 09:35 05/03/17 09:49 05/03/17 09:35 05/03/17 09:49 05/03/17 09:35 - Medications Medications: Current Medications Amlodipine Besylate (Norvasc) 10 mg PO DAILY [facility] Last Admin: 05/03/17 09:49 Dose: 10 mg Ceftriaxone Sodium 1 gm/ (Sodium Chloride) 100 mls @ 100 mls/hr IVPB DAILY [facility] PRN Reason: Protocol Last Admin: 05/03/17 09:51 Dose: 100 mls/hr Ondansetron HCl (Zofran Inj) 4 mg IVP Q6 PRN PRN Reason: Nausea/Vomiting Last Admin: 05/02/17 12:27 Dose: 4 mg Pantoprazole Sodium (Protonix Inj) 40 mg IVP DAILY [facility] Last Admin: 05/03/17 09:49 Dose: 40 mg - Labs Labs: 05/03/17 05:15 05/03/17 10:30 - Constitutional Appears: Non-toxic - Head Exam Head Exam: NORMAL INSPECTION, NORMOCEPHALIC - Eye Exam Eye Exam: EOMI, Normal appearance, PERRL Pupil Exam: NORMAL ACCOMODATION - ENT Exam ENT Exam: Mucous Membranes Dry, Normal External Ear Exam - Neck Exam Neck exam: Positive for: Full Rom. Negative for: Meningismus - Respiratory Exam Respiratory Exam: NORMAL BREATHING PATTERN. absent: Accessory Muscle Use, Chest Wall Tenderness, Rales, Rhonchi, Wheezes, Respiratory Distress - Cardiovascular Exam Cardiovascular Exam: REGULAR RHYTHM, +S1, +S2 - GI/Abdominal Exam GI & Abdominal Exam: Normal Bowel Sounds, Soft. absent: Tenderness - Extremities Exam Extremities exam: Positive for: normal capillary refill, pedal pulses present. Negative for: calf tenderness, pedal edema - Back Exam Back exam: absent: CVA tenderness (L), CVA tenderness (R), vertebral tenderness - Neurological Exam Neurological exam: Alert, CN II-XII Intact, MMT 5/5 Additional comments: oriented to person and place - Psychiatric Exam Psychiatric exam: Anxious, Depressed - Skin Skin Exam: Dry, Normal Color, Warm Assessment and Plan (1) Hyponatremia with decreased serum osmolality Status: Acute (2) Abdominal pain Status: Acute (3) UTI (urinary tract infection) Status: Acute (4) Depression, psychotic Status: Chronic (5) Chest pain Status: Acute (6) HTN (hypertension) Status: Chronic (7) DVT prophylaxis Status: Acute - Assessment and Plan (Free Text) Assessment: 66 y/o lady with hx of HTN, Depression with Psychosis, admitted to [facility] for Depression and Suicidal ideation. Traansferred to Telemetry because of Chest Pain, Hyponatremia and Vomiting. Sodium noted to be 122. She was started on 3% NaCl, close BMP monitoring. Nephrology consulted. (1) Hyponatremia with decreased serum osmolality Status: Acute Prob SIADH - Low Serum Osm, Normal Urine Osm. will Pt was started on 3% NaCl BMP q 4. Avoid Overcorrection -risk for Osmotic Demyelination Synd. Nephrology consulted, discussed case with DR Lancaster and Dr Castaneda d/c Lexaprclovis. TSH normal CT of head : neg Na still 125 - discussed with Dr Lancaster rec to start Tolvaptan (2) Nausea /Vomiting with mild abdominal discomfort Status: Acute Pt had diarrhea 1 wk ago and this resolved however still with nausea and some vomiting N/V may be due to low Sodium CT of abd ordered however pt unable to tolerate PO contrast- ordered Abd Sonogram instead (3) UTI (urinary tract infection) Status: Acute Urinalysis with Leukoest , pyuria and some hematuria. Leukocytosis, no fever. cont IV ceftriaxone. Urine c/s. (4) Depression, psychotic Status: Chronic Psych consult. hold off on Lexapro for now due to low Sodium Dr Lukasz meza Risperdal and Remeron, Ativan prn for anxiety (5) Chest pain, ACS ruled out Chest Discomfort prob GI due to vomiting Status: Acute Troponin normal and EKG no change , unlikely ACS. Ddimer normal CXR negative started pt on Protonix (6) HTN (hypertension) Status: Chronic cont Norvasc. (7) DVT prophylaxis Status: Acute Comment: Lovenox
--- NOTE | 2017-05-03 12:10 | CARD ---
APPROVED REPORT EXAM: Two-dimensional and M-mode echocardiogram with Doppler and color Doppler. Other Information Quality : GoodRhythm : NSR INDICATION Chest Pain 2D DIMENSIONS IVSd1.02 (0.7-1.1cm)LVDd3.40 (3.9-5.9cm) LVOT Diameter2.30 (1.8-2.4cm)PWd0.85 (0.7-1.1cm) IVSs1.28 (0.8-1.2cm)LVDs2.05 (2.5-4.0cm) FS (%) 39.8 %PWs1.22 (0.8-1.2cm) M-Mode DIMENSIONS Left Atrium (MM)3.27 (2.5-4.0cm)IVSd0.72 (0.7-1.1cm) Aortic Root3.19 (2.2-3.7cm)LVDd4.61 (4.0-5.6cm) Aortic Cusp Exc.2.47 (1.5-2.0cm)PWd1.06 (0.7-1.1cm) IVSs1.62 cmFS (%) 55 % LVDs2.06 (2.0-3.8cm)PWs1.65 cm Mitral Valve MV E Siedijji91.2cm/sMV DECEL [id number] A Fticpgrt32.2cm/s MV [id number]/A ratio1.0MVA (PHT)3.70cm2 TDI Lateral E' Peak V7.41cm/sMedial E' Peak V5.38cm/sE/Lateral E'7.9 E/Medial E'10.8 Pulmonary Valve PV Peak Ooxwamuu31.7cm/s LEFT VENTRICLE The left ventricle is normal size. There is normal left ventricular wall thickness. The left ventricular function is normal. The left ventricular ejection fraction is 60% There is normal LV segmental wall motion. The left ventricular diastolic function is normal. No left ventricle thrombus noted on this study. There is no ventricular septal defect visualized. There is no left ventricular aneurysm. There is no mass noted in the left ventricle. RIGHT VENTRICLE The right ventricle is normal size. There is normal right ventricular wall thickness. The right ventricular systolic function is normal. ATRIA The left atrium size is normal. The right atrium size is normal. The interatrial septum is intact with no evidence for an atrial septal defect. AORTIC VALVE The aortic valve is normal in structure. No aortic regurgitation is present. There is no aortic valvular stenosis. There is no aortic valvular vegetation. MITRAL VALVE The mitral valve is normal in structure. There is no evidence of mitral valve prolapse. There is no mitral valve stenosis. There is no mitral valve regurgitation noted. TRICUSPID VALVE The tricuspid valve is normal in structure. There is no tricuspid valve regurgitation noted. There is no tricuspid valve prolapse or vegetation. There is no tricuspid valve stenosis. PULMONIC VALVE The pulmonary valve is normal in structure. There is no pulmonic valvular regurgitation. There is no pulmonic valvular stenosis. GREAT VESSELS The aortic root is normal in size. The ascending aorta is normal in size. The IVC is normal in size and collapses >50% with inspiration. PERICARDIAL EFFUSION The pericardium appears normal. There is no pleural effusion. <Conclusion> Normal Echocardiogram
--- NOTE | 2017-05-03 13:30 | CP.PCM.CON ---
History of Present Illness - History of Present Illness History of Present Illness: Psychiatry consult note CC: "I'm worried about my heart." HPI: 66 year old female patient with PMHx of HTN, was initially admitted to the psychiatry unit for depression w/ psychosis, then transferred to the medical unit after she had chest pain and hyponatremia. Patient continues to report feels depressed and anxious in the context of having social stressors. She denies current ideation to harm herself. Denies current AH/VH. PMHx: HTN PSHx: x 2 Allergies: Tetracycline, Olanzapine, Doxepin SHx: Denies of smoking, EtOH or illicit drug usage MSE: A + O x 3, calm, cooperative, good eye contact, mood-depressed, affect- fatigued/ill; thought process- coherent, thought content- denies acute paranoia/ delusions, no SI/HI, fair to poor I/J Impression: 66 yo female w/ MDD w/ psychosis. -Will not restart SSRIs -Start Remeron 15 mg PO HS -Ativan 0.5 mg Q8hr PRN anxiety -Continue Risperdal 0.5 mg PO HS -No 1:1 indicated at this time Past Patient History - Infectious Disease Hx of Infectious Diseases: None - Tetanus Immunizations Tetanus Immunization: Unknown - Past Medical History & Family History Past Medical History?: Yes - Past Social History Smoking Status: Never Smoked - CARDIAC Hx Cardiac Disorders: Yes Hx Hypertension: Yes - PULMONARY Hx Respiratory Disorders: No Hx Tuberculosis: No - NEUROLOGICAL Hx Neurological Disorder: No Hx Seizures: No - HEENT Hx HEENT Problems: No - RENAL Hx Chronic Kidney Disease: No - ENDOCRINE/METABOLIC Hx Endocrine Disorders: No - HEMATOLOGICAL/ONCOLOGICAL Hx Blood Disorders: No Hx AIDS: No Hx Human Immunodeficiency Virus (HIV): No - INTEGUMENTARY Hx Dermatological Problems: No - MUSCULOSKELETAL/RHEUMATOLOGICAL Hx Musculoskeletal Disorders: Yes Hx Falls: Yes (2 MONTHS AGO [place] [address]) - GASTROINTESTINAL Hx Gastrointestinal Disorders: No - GENITOURINARY/GYNECOLOGICAL Hx Genitourinary Disorders: No Hx Sexually Transmitted Disorders: No - PSYCHIATRIC Hx Psychophysiologic Disorder: Yes Hx Anxiety: Yes Hx Depression: Yes Hx Substance Use: No - SURGICAL HISTORY Hx Surgeries: Yes Hx Section: Yes (x2) - ANESTHESIA Hx Anesthesia: Yes Hx Anesthesia Reactions: No Hx Malignant Hyperthermia: No Meds Allergies/Adverse Reactions: Allergies Allergy/AdvReac Type Severity Reaction Status Date / Time doxepin [From Sinequan] Allergy RASH Verified 04/30/17 11:25 olanzapine [From Zyprexa] Allergy RASH Verified 04/30/17 11:25 Tetracyclines Allergy RASH Verified 04/30/17 11:25 - Medications Medications: Current Medications Amlodipine Besylate (Norvasc) 10 mg PO DAILY [facility] Last Admin: 05/03/17 09:49 Dose: 10 mg Ceftriaxone Sodium 1 gm/ (Sodium Chloride) 100 mls @ 100 mls/hr IVPB DAILY [facility] PRN Reason: Protocol Last Admin: 05/03/17 09:51 Dose: 100 mls/hr Lorazepam (Ativan) 0.5 mg PO Q8 PRN PRN Reason: Anxiety Mirtazapine (Remeron) 15 mg PO HS [facility] Ondansetron HCl (Zofran Inj) 4 mg IVP Q6 PRN PRN Reason: Nausea/Vomiting Last Admin: 05/03/17 12:10 Dose: 4 mg Pantoprazole Sodium (Protonix Inj) 40 mg IVP DAILY [facility] Last Admin: 05/03/17 09:49 Dose: 40 mg Risperidone (Risperdal Tab) 0.5 mg PO HS [facility] Results - Vital Signs Recent Vital Signs: Last Vital Signs Temp 99.1 F 05/03/17 12:00 Pulse 111 H 05/03/17 12:00 Resp 18 05/03/17 12:00 BP 148/86 05/03/17 12:00 Pulse Ox 100 05/03/17 12:00 - Labs Result Diagrams: 05/03/17 05:15 05/03/17 10:30 Labs: Laboratory Results - last 24 hr 05/02/17 05/02/17 05/02/17 12:20 14:38 18:06 WBC RBC Hgb Hct MCV MCH MCHC RDW Plt Count D-Dimer, Quantitative 218 Sodium 125 L 136 Potassium 3.7 3.8 Chloride 94 L 100 Carbon Dioxide 22 22 Anion Gap 13 18 BUN 6 L 5 L Creatinine 0.6 L 0.7 Est GFR ( Amer) > 60 > 60 Est GFR (Non-Af Amer) > 60 > 60 Random Glucose 108 H 125 H Calcium 9.1 9.9 Total Bilirubin AST ALT Alkaline Phosphatase Troponin I < 0.0120 0.0160 Total Protein Albumin Globulin Albumin/Globulin Ratio Urine Color Urine Clarity Urine pH Ur Specific Beverly Urine Protein Urine Glucose (UA) Urine Ketones Urine Blood Urine Nitrate Urine Bilirubin Urine Urobilinogen Ur Leukocyte Esterase Urine RBC (Auto) Urine Microscopic WBC Ur Squamous Epith Cells Urine Bacteria Urine Osmolality Ur Random Sodium 05/02/17 05/02/17 05/02/17 20:15 20:15 22:29 WBC RBC Hgb Hct MCV MCH MCHC RDW Plt Count D-Dimer, Quantitative Sodium 132 Potassium 4.0 Chloride 99 Carbon Dioxide 25 Anion Gap 12 BUN 5 L Creatinine 0.7 Est GFR ( Amer) > 60 Est GFR (Non-Af Amer) > 60 Random Glucose 150 H Calcium 9.8 Total Bilirubin AST ALT Alkaline Phosphatase Troponin I Total Protein Albumin Globulin Albumin/Globulin Ratio Urine Color Straw Urine Clarity Slighty-cloudy Urine pH 7.0 Ur Specific Beverly 1.006 Urine Protein Negative Urine Glucose (UA) Neg Urine Ketones Negative Urine Blood Moderate Urine Nitrate Negative Urine Bilirubin Negative Urine Urobilinogen 0.2-1.0 Ur Leukocyte Esterase Mod Urine RBC (Auto) 18 H Urine Microscopic WBC 16 H Ur Squamous Epith Cells < 1 Urine Bacteria Rare Urine Osmolality 216 L Ur Random Sodium 79 05/03/17 05/03/17 05/03/17 00:51 03:01 05:15 WBC 13.9 H RBC 5.17 Hgb 13.0 Hct 39.9 MCV 77.2 L MCH 25.2 L MCHC 32.6 L RDW 15.4 H Plt Count 202 D-Dimer, Quantitative Sodium 129 L 132 Potassium 3.9 3.6 Chloride 97 L 96 L Carbon Dioxide 24 25 Anion Gap 12 15 BUN 5 L 5 L Creatinine 0.7 0.7 Est GFR ( Amer) > 60 > 60 Est GFR (Non-Af Amer) > 60 > 60 Random Glucose 164 H 120 H Calcium 9.7 9.4 Total Bilirubin 0.8 AST 22 ALT 29 Alkaline Phosphatase 63 Troponin I < 0.0120 Total Protein 6.7 Albumin 3.9 Globulin 2.8 Albumin/Globulin Ratio 1.4 Urine Color Urine Clarity Urine pH Ur Specific Beverly Urine Protein Urine Glucose (UA) Urine Ketones Urine Blood Urine Nitrate Urine Bilirubin Urine Urobilinogen Ur Leukocyte Esterase Urine RBC (Auto) Urine Microscopic WBC Ur Squamous Epith Cells Urine Bacteria Urine Osmolality Ur Random Sodium 05/03/17 05/03/17 05:15 10:30 WBC RBC Hgb Hct MCV MCH MCHC RDW Plt Count D-Dimer, Quantitative Sodium 127 L 125 L Potassium 3.5 L 2.9 L Chloride 93 L 92 L Carbon Dioxide 25 21 L Anion Gap 13 15 BUN 5 L 4 L Creatinine 0.7 0.6 L Est GFR ( Amer) > 60 > 60 Est GFR (Non-Af Amer) > 60 > 60 Random Glucose 114 H 181 H Calcium 9.4 9.0 Total Bilirubin AST ALT Alkaline Phosphatase Troponin I Total Protein Albumin Globulin Albumin/Globulin Ratio Urine Color Urine Clarity Urine pH Ur Specific [place] Urine Protein Urine Glucose (UA) Urine Ketones Urine Blood Urine Nitrate Urine Bilirubin Urine Urobilinogen Ur Leukocyte Esterase Urine RBC (Auto) Urine Microscopic WBC Ur Squamous Epith Cells Urine Bacteria Urine Osmolality Ur Random Sodium
[2017-05-03 15:26] LABS: BLOOD UREA NITROGEN 4 mg/dl (7-17); CALCIUM 9.3 mg/dL (8.4-10.2); GFR AFRICAN-AMERICAN > 60; GFR NON-AFRICAN AMERICAN > 60; MAGNESIUM 1.7 MG/DL (1.6-2.3)
[2017-05-03] MEDS ORDERED: Potassium & Sodium Phosphate PO STA (15:32)
[2017-05-03] MEDS ORDERED: Tolvaptan 15 MG TAB PO ONE (15:46)
--- NOTE | 2017-05-03 18:25 | CARD ---
APPROVED REPORT EKG Measurement Heart [id number] <Conclusion> Sinus rhythm with premature supraventricular complexes Otherwise normal ECG
[2017-05-03 19:22] LABS: BLOOD UREA NITROGEN 3 mg/dl (7-17); GFR AFRICAN-AMERICAN > 60; GFR NON-AFRICAN AMERICAN > 60
[2017-05-03 22:05] LABS: BLOOD UREA NITROGEN 4 mg/dl (7-17); CALCIUM 9.9 mg/dL (8.4-10.2); GFR AFRICAN-AMERICAN > 60; GFR NON-AFRICAN AMERICAN > 60
[2017-05-04 07:14] LABS: OSMOLALITY,URINE 38 mosm/kg (300-1000)
[2017-05-04] MEDS ORDERED: Metoprolol 1 mg/ml Inj IVP STA (08:10)
--- NOTE | 2017-05-04 12:30 | CP.PCM.PN ---
Subjective - Date & Time of Evaluation Date of Evaluation: 05/04/17 Time of Evaluation: 12:26 - Subjective Subjective: pt states nausea and emesis is improving tachycardic this AM, started Lopressor 25 mg PO BID otherwise HD stable NAD Objective - Vital Signs/Intake and Output Vital Signs (last 24 hours): Temp Pulse Resp BP Pulse Ox 98.5 F 146 H 18 103/70 98 05/04/17 08:00 05/04/17 08:23 05/04/17 08:00 05/04/17 08:23 05/04/17 08:00 Vitals Reviewed GEN: WDWN, ALERT, COOPERATIVE HEENT: NCAT, PERRL, EOMI HEART: RRR, +S1S2, NO MRG LUNG: CTAB, NO WRR ABD: SOFT, NT, ND, NO HSM, NO MASSES EXT: NORMAL PEDAL PULSES, GOOD CAPILLARY REFILL NEURO: AAOX3, STRENGTH EQUAL BILATERAL UPPER AND LOWER EXTREMITIES SKIN: WARM, DRY PSYCH: NORMAL MOOD, NORMAL AFFECT - Medications Medications: Current Medications Amlodipine Besylate (Norvasc) 10 mg PO DAILY [facility] Last Admin: 05/03/17 09:49 Dose: 10 mg Ceftriaxone Sodium 1 gm/ (Sodium Chloride) 100 mls @ 100 mls/hr IVPB DAILY [facility] PRN Reason: Protocol Last Admin: 05/03/17 09:51 Dose: 100 mls/hr Lorazepam (Ativan) 0.5 mg PO Q8 PRN PRN Reason: Anxiety Last Admin: 05/04/17 03:16 Dose: 0.5 mg Metoprolol Tartrate (Lopressor) 25 mg PO Q12 [facility] Mirtazapine (Remeron) 15 mg PO [facility] Last Admin: 05/03/17 21:14 Dose: 15 mg Ondansetron HCl (Zofran Inj) 4 mg IVP Q6 PRN PRN Reason: Nausea/Vomiting Last Admin: 05/04/17 00:19 Dose: 4 mg Pantoprazole Sodium (Protonix Inj) 40 mg IVP DAILY [facility] Last Admin: 05/04/17 08:27 Dose: 40 mg Risperidone (Risperdal Tab) 0.5 mg PO [facility] Last Admin: 05/03/17 21:14 Dose: 0.5 mg - Labs Labs: 05/03/17 05:15 05/03/17 21:41 Assessment and Plan - Assessment and Plan (Free Text) Plan: 66 y/o lady with hx of HTN, Depression with Psychosis, admitted to [facility] for Depression and Suicidal ideation. Traansferred to Telemetry because of Chest Pain, Hyponatremia and Vomiting. Sodium noted to be 122. She was started on 3% NaCl, close BMP monitoring. Nephrology consulted. 05/04/17 Na improving, however pt tachycardic today, responded well to IV lopressor, will start LOPRESSOR 25 MG PO Q12. (1) Hyponatremia with decreased serum osmolality Status: Acute Prob SIADH - Low Serum Osm, Normal Urine Osm. Pt was started on 3% NaCl and then discontinued after overcorrection, risk for Osmotic Demyelination Synd. BMP q 4. Nephrology consulted, discussed case with DR Lancaster and Dr Castaneda d/c Lexaprclovis. TSH normal CT of head : neg Na 30 today - discussed with Dr Lancaster rec to start Tolvaptan (2) Nausea /Vomiting with mild abdominal discomfort Status: Acute Pt had diarrhea 1 wk ago and this resolved however still with nausea and some vomiting N/V may be due to low Sodium CT of abd ordered however pt unable to tolerate PO contrast- ordered Abd Sonogram instead (3) UTI (urinary tract infection) Status: Acute Urinalysis with Leukoest , pyuria and some hematuria. Leukocytosis, no fever. cont IV ceftriaxone. Urine c/s. (4) Depression, psychotic Status: Chronic Psych consult. hold off on Lexapro for now due to low Sodium Dr Lukasz meza Risperdal and Remeron, Ativan prn for anxiety (5) Chest pain, ACS ruled out Chest Discomfort prob GI due to vomiting Status: Acute Troponin normal and EKG no change , unlikely ACS. Ddimer normal CXR negative started pt on Protonix (6) HTN (hypertension) Status: Chronic cont Norvasc. (7) Tachycardia started Lopressor 25 mg BID DVT prophylaxis Status: Acute Comment: Lovenox
--- NOTE | 2017-05-04 17:13 | CP.PCM.PN ---
Subjective - Date & Time of Evaluation Date of Evaluation: 05/04/17 Time of Evaluation: 17:11 - Subjective Subjective: Follow up Nephrology Consultation: Assessment: stable euvolemic hypo-osmolar hyponatremia with high urine Na and urine osmol suggests ADH stimulation ? due to psych meds HTN depression chest pain possible UTI Plan Hypertension control with meds as ordered. Monitor Input/Output, serum sodium level avoid correction in serum Na more than 6-8 meq/24 hrs Na better after a dose of tolvaptan suggest fluid restriction 1200 mL/day alternative psych meds as per primary team Glycemic control Further work up/management as per primary team Thanks for allowing me to participate in care of your patient. Will follow patient with you. Please call if any Qs. Dr Darin Castaneda Office: [phone] Chief Complaint; none HPI: Pt is a 66 F with hx of hypertension (years), depression presented with complaints of chest pain and possible UTI. also noted to have low Na 121 hence renal consulted. she has low Na 125 for last 2-3 days otherwise serum Na was 140 range 5 days before. she feels better at this time pt denies drinking excess water on SSRI ROS: Cardiovascular: No chest pain now Pulmonary: No shortness of breath Gastrointestinal: denies abdominal pain No nausea. No vomiting. Genitourinary: No pain while urinating. Denies blood in urine. All other negative Physical Examination: General Appearance: Comfortable, in no acute respiratory distress, co-operative . Vitals reviewed and noted as below Head; Atraumatic, normocephalic ENT: no ulcers no thrush. Tongue is midline. Oropharynx: no rash or ulcers. EYES: Pupils are equal, round and reactive to light accommodation. Eye muscles and extraocular movement intact. Sclera is anicteric. Neck; supple no lymphadenopathy, no thyromegaly or bruit Lungs: Normal respiratory rate/effort. Breath sounds bilateral equal and clear Heart: Normal rate. s1s2 normal. No rub or gallop. Extremities: no edema. No varicose veins Neurological: Patient is alert, awake and oriented to person, place and time. No focal deficit. Strength bilateral appropriate and equal Skin: Warm and dry. Normal turgor. No rash. Palpitation: Normal elasticity for age Abdomen: Abdomen is soft. Bowel sounds +. There is no abdominal tenderness, no guarding/rigidity no organomegaly Psych: limited insight and flat affect/mood MSK: no joint tenderness or swelling. Digits and nails normal, no deformity : kidney or bladder not palpable Labs/imaging reviewed. Past medical history, past surgical history, family history, social history, allergy reviewed and noted as below Family hx: no hx of CKD. Rest non-contributory UA: SG 1.005 urine Na 106 urine osmol 468 serum osmol 253 Objective - Vital Signs/Intake and Output Vital Signs (last 24 hours): Temp Pulse Resp BP Pulse Ox 99.7 F H 77 14 111/70 98 05/04/17 16:14 05/04/17 16:14 05/04/17 16:14 05/04/17 16:14 05/04/17 16:14 - Medications Medications: Current Medications Amlodipine Besylate (Norvasc) 10 mg PO DAILY [facility] Last Admin: 05/04/17 13:15 Dose: 10 mg Ceftriaxone Sodium 1 gm/ (Sodium Chloride) 100 mls @ 100 mls/hr IVPB DAILY [facility] PRN Reason: Protocol Last Admin: 05/04/17 16:50 Dose: 100 mls/hr Lorazepam (Ativan) 0.5 mg PO Q8 PRN PRN Reason: Anxiety Last Admin: 05/04/17 03:16 Dose: 0.5 mg Metoprolol Tartrate (Lopressor) 25 mg PO Q12 [facility] Last Admin: 05/04/17 13:13 Dose: 25 mg Mirtazapine (Remeron) 15 mg PO HS [facility] Last Admin: 05/03/17 21:14 Dose: 15 mg Ondansetron HCl (Zofran Inj) 4 mg IVP Q6 PRN PRN Reason: Nausea/Vomiting Last Admin: 05/04/17 00:19 Dose: 4 mg Pantoprazole Sodium (Protonix Inj) 40 mg IVP DAILY [facility] Last Admin: 05/04/17 08:27 Dose: 40 mg Risperidone (Risperdal Tab) 0.5 mg PO HS [facility] Last Admin: 05/03/17 21:14 Dose: 0.5 mg - Labs Labs: 05/03/17 05:15 05/03/17 21:41
--- NOTE | 2017-05-04 17:37 | US ---
HISTORY: abdominal pain COMPARISON: None. TECHNIQUE: Sonographic evaluation of the abdomen. FINDINGS: LIVER: Measures 12.3 cm. Normal echogenicity of the liver parenchyma. No mass. No intrahepatic bile duct dilatation. Main portal vein demonstrates hepatopetal flow GALLBLADDER: Intraluminal gallbladder calculi. No pericholecystic fluid collections or sonographic Faye sign COMMON BILE DUCT: Measures 2.9 mm. No stones. No dilatation. PANCREAS: Unremarkable as visualized. No mass. No ductal dilatation. RIGHT KIDNEY: Measures 8.9 x 4.0 x 4.0cm. Normal echogenicity. No calculus, mass, or hydronephrosis. LEFT KIDNEY: Measures 9.6 x 4.0 x 4.4cm. Normal echogenicity. No calculus, mass, or hydronephrosis. SPLEEN: Normal in size and contour. No mass. AORTA: No aneurysmal dilatation. IVC: Unremarkable. OTHER FINDINGS: None. IMPRESSION: Cholelithiasis no evidence of sonographic Faye sign.
[2017-05-05 08:32] LABS: BASO # 0.1 K/uL (0.0-0.2); BASO % 0.7 % (0.0-2.0); EOS # 0.4 K/uL (0.0-0.7); EOS % 2.9 % (0.0-4.0); HEMOGLOBIN 12.6 g/dL (12.0-16.0); LYMPH # 2.2 K/uL (1.0-4.3); LYMPH % 15.9 % (20.0-40.0); MEAN CELL VOLUME 78.8 fl (81.0-99.0); MEAN CORPUSCULAR HEMOGLOBIN 24.5 pg (27.0-31.0); MEAN CORPUSCULAR HGB CONC 31.1 g/dL (33.0-37.0); MEAN PLATELET VOLUME 9.6 fl (7.2-11.7); MONO # 1.2 K/uL (0.0-0.8); MONO % 8.8 % (0.0-10.0); NEUT # 9.7 K/uL (1.8-7.0); NEUT % 71.7 % (50.0-75.0); NRBC % 0.1 % (0.0-0.0); RBC 5.15 Mil/uL (3.80-5.20); RED CELL DISTRIBUTION WIDTH 15.9 % (11.5-14.5); WHITE BLOOD COUNT 13.5 K/uL (4.8-10.8)
[2017-05-05 09:04] LABS: BLOOD UREA NITROGEN 10 mg/dl (7-17); GFR AFRICAN-AMERICAN > 60; GFR NON-AFRICAN AMERICAN > 60
--- NOTE | 2017-05-05 09:55 | CP.PCM.PN ---
Subjective - Date & Time of Evaluation Date of Evaluation: 05/05/17 Time of Evaluation: 09:00 - Subjective Subjective: No fever had large softy BM this am no vomiting , tolertaed liquid diet will upgrade diet to Turner soft diet denies CP no SOB no abd pain Objective - Vital Signs/Intake and Output Vital Signs (last 24 hours): Temp Pulse Resp BP Pulse Ox 98 F 97 H 20 139/82 98 05/05/17 08:00 05/05/17 08:00 05/05/17 08:00 05/05/17 08:00 05/05/17 08:00 - Medications Medications: Current Medications Amlodipine Besylate (Norvasc) 10 mg PO DAILY [facility] Last Admin: 05/04/17 13:15 Dose: 10 mg Ceftriaxone Sodium 1 gm/ (Sodium Chloride) 100 mls @ 100 mls/hr IVPB DAILY [facility] PRN Reason: Protocol Last Admin: 05/04/17 16:50 Dose: 100 mls/hr Lactobacillus Acidophilus (Bacid Acidophilus) 1 cap PO BID [facility] Lorazepam (Ativan) 0.5 mg PO Q8 PRN PRN Reason: Anxiety Last Admin: 05/04/17 21:06 Dose: 0.5 mg Metoprolol Tartrate (Lopressor) 25 mg PO Q12 [facility] Last Admin: 05/04/17 21:07 Dose: 25 mg Mirtazapine (Remeron) 15 mg PO HS [facility] Last Admin: 05/04/17 21:08 Dose: 15 mg Ondansetron HCl (Zofran Inj) 4 mg IVP Q6 PRN PRN Reason: Nausea/Vomiting Last Admin: 05/04/17 00:19 Dose: 4 mg Pantoprazole Sodium (Protonix Inj) 40 mg IVP DAILY [facility] Last Admin: 05/04/17 08:27 Dose: 40 mg Risperidone (Risperdal Tab) 0.5 mg PO HS [facility] Last Admin: 05/04/17 21:08 Dose: 0.5 mg - Labs Labs: 05/05/17 07:00 05/05/17 07:00 - Constitutional Appears: Non-toxic - Head Exam Head Exam: NORMAL INSPECTION, NORMOCEPHALIC - Eye Exam Eye Exam: EOMI, Normal appearance, PERRL Pupil Exam: NORMAL ACCOMODATION - ENT Exam ENT Exam: Mucous Membranes Dry, Normal External Ear Exam - Neck Exam Neck exam: Positive for: Full Rom. Negative for: Meningismus - Respiratory Exam Respiratory Exam: NORMAL BREATHING PATTERN. absent: Accessory Muscle Use, Chest Wall Tenderness, Rales, Rhonchi, Wheezes, Respiratory Distress - Cardiovascular Exam Cardiovascular Exam: REGULAR RHYTHM, +S1, +S2 - GI/Abdominal Exam GI & Abdominal Exam: Normal Bowel Sounds, Soft. absent: Tenderness - Extremities Exam Extremities exam: Positive for: normal capillary refill, pedal pulses present. Negative for: calf tenderness, pedal edema - Back Exam Back exam: absent: CVA tenderness (L), CVA tenderness (R), vertebral tenderness - Neurological Exam Neurological exam: Alert, CN II-XII Intact, MMT 5/5 Additional comments: oriented to person and place - Psychiatric Exam Psychiatric exam: Anxious, Depressed - Skin Skin Exam: Dry, Normal Color, Warm Assessment and Plan (1) Hyponatremia with decreased serum osmolality Status: Acute (2) Abdominal pain Status: Acute (3) UTI (urinary tract infection) Status: Acute (4) Depression, psychotic Status: Chronic (5) Chest pain Status: Acute (6) HTN (hypertension) Status: Chronic (7) DVT prophylaxis Status: Acute - Assessment and Plan (Free Text) Assessment: 66 y/o lady with hx of HTN, Depression with Psychosis, admitted to [facility] for Depression and Suicidal ideation. Transferred to Telemetry because of Chest Pain, Hyponatremia and Vomiting. Sodium noted to be 122. She was started on 3% NaCl, close BMP monitoring. Nephrology consulted. Given dennison of Tolvaptan. Psych consulted . At present 05/05 Vomiting resolved however she had one large soft BM this am. Sodium now normal. (1) Hyponatremia with decreased serum osmolality, resolved Status: Acute Prob SIADH - Low Serum Osm, Normal Urine Osm. Pt was started on 3% NaCl and then discontinued after overcorrection, risk for Osmotic Demyelination Synd. BMP q 4. Nephrology consulted: DR Lancaster and Dr Castaneda d/c Lexapro. TSH normal CT of head : neg Na 139 today (2) Nausea /Vomiting with mild abdominal discomfort, resolved Status: Acute N/V may be due to low Sodium CT of abd ordered however pt unable to tolerate PO contrast- ordered Abd Sonogram : normal (3) UTI (urinary tract infection) Status: Acute Urinalysis with Leukoest , pyuria and some hematuria. Leukocytosis, no fever. cont IV ceftriaxone. Urine c/s: negative (4) Depression, psychotic Status: Chronic Psych consult. hold off on Lexapro for now due to low Sodium Dr Lal rec Risperdal and Remeron, Ativan prn for anxiety (5) Chest pain, ACS ruled out Chest Discomfort prob GI due to vomiting Status: Acute Troponin normal and EKG no change , unlikely ACS. Ddimer normal CXR negative started pt on Protonix (6) HTN (hypertension) Status: Chronic cont Norvasc. (7) Tachycardia started Lopressor 25 mg BID 8. Diarrhea - had large soft BM this am - Stool c/s, WBC, C Diff - empirically started on Flagyl PO DVT prophylaxis Status: Acute Comment: Lovenox
[2017-05-05] MEDS: Lactobacillus Acidophilus 500 MU Cap PO SCH (10:19)
--- NOTE | 2017-05-05 14:29 | CP.PCM.PN ---
Subjective - Date & Time of Evaluation Date of Evaluation: 05/05/17 Time of Evaluation: 14:28 - Subjective Subjective: Follow up Nephrology Consultation: Assessment: stable euvolemic hypo-osmolar hyponatremia with high urine Na and urine osmol suggests ADH stimulation ? due to psych meds HTN depression chest pain possible UTI Plan Hypertension control with meds as ordered. Monitor Input/Output, serum sodium level avoid correction in serum Na more than 6-8 meq/24 hrs Na better and normal after a dose of tolvaptan suggest fluid restriction 1200 mL/day alternative psych meds as per primary team Glycemic control Further work up/management as per primary team Thanks for allowing me to participate in care of your patient. Will follow patient with you. Please call if any Qs. Dr Darin Castaneda Office: [phone] Chief Complaint; none HPI: Pt is a 66 F with hx of hypertension (years), depression presented with complaints of chest pain and possible UTI. also noted to have low Na 121 hence renal consulted. she has low Na 125 for last 2-3 days otherwise serum Na was 140 range 5 days before. she feels better at this time pt denies drinking excess water on SSRI ROS: Cardiovascular: No chest pain now Pulmonary: No shortness of breath Gastrointestinal: denies abdominal pain No nausea. No vomiting. Genitourinary: No pain while urinating. Denies blood in urine. All other negative Physical Examination: General Appearance: Comfortable, in no acute respiratory distress, co-operative . Vitals reviewed and noted as below Head; Atraumatic, normocephalic ENT: no ulcers no thrush. Tongue is midline. Oropharynx: no rash or ulcers. EYES: Pupils are equal, round and reactive to light accommodation. Eye muscles and extraocular movement intact. Sclera is anicteric. Neck; supple no lymphadenopathy, no thyromegaly or bruit Lungs: Normal respiratory rate/effort. Breath sounds bilateral equal and clear Heart: Normal rate. s1s2 normal. No rub or gallop. Extremities: no edema. No varicose veins Neurological: Patient is alert, awake and oriented to person, place and time. No focal deficit. Strength bilateral appropriate and equal Skin: Warm and dry. Normal turgor. No rash. Palpitation: Normal elasticity for age Abdomen: Abdomen is soft. Bowel sounds +. There is no abdominal tenderness, no guarding/rigidity no organomegaly Psych: limited insight and flat affect/mood MSK: no joint tenderness or swelling. Digits and nails normal, no deformity : kidney or bladder not palpable Labs/imaging reviewed. Past medical history, past surgical history, family history, social history, allergy reviewed and noted as below Family hx: no hx of CKD. Rest non-contributory UA: SG 1.005 urine Na 106 urine osmol 468 serum osmol 253 Objective - Vital Signs/Intake and Output Vital Signs (last 24 hours): Temp Pulse Resp BP Pulse Ox 98.7 F 86 20 112/77 97 05/05/17 12:00 05/05/17 12:00 05/05/17 12:00 05/05/17 12:00 05/05/17 12:00 - Medications Medications: Current Medications Amlodipine Besylate (Norvasc) 10 mg PO DAILY [facility] Last Admin: 05/05/17 10:12 Dose: 10 mg Ceftriaxone Sodium 1 gm/ (Sodium Chloride) 100 mls @ 100 mls/hr IVPB DAILY [facility] PRN Reason: Protocol Last Admin: 05/05/17 11:30 Dose: Not Given Lactobacillus Acidophilus (Bacid Acidophilus) 1 cap PO BID [facility] Last Admin: 05/05/17 10:19 Dose: 1 cap Lorazepam (Ativan) 0.5 mg PO Q8 PRN PRN Reason: Anxiety Last Admin: 05/05/17 13:43 Dose: 0.5 mg Metoprolol Tartrate (Lopressor) 25 mg PO Q12 [facility] Last Admin: 05/05/17 10:13 Dose: 25 mg Mirtazapine (Remeron) 15 mg PO HS [facility] Last Admin: 05/04/17 21:08 Dose: 15 mg Ondansetron HCl (Zofran Inj) 4 mg IVP Q6 PRN PRN Reason: Nausea/Vomiting Last Admin: 05/04/17 00:19 Dose: 4 mg Pantoprazole Sodium (Protonix Inj) 40 mg IVP DAILY [facility] Last Admin: 05/05/17 10:14 Dose: 40 mg Risperidone (Risperdal Tab) 0.5 mg PO HS [facility] Last Admin: 05/04/17 21:08 Dose: 0.5 mg - Labs Labs: 05/05/17 07:00 05/05/17 07:00
[2017-05-06] MEDS: Lactobacillus Acidophilus 500 MU Cap PO SCH ×2 (08:17→16:25)
--- NOTE | 2017-05-06 08:34 | CP.PCM.PN ---
Subjective - Date & Time of Evaluation Date of Evaluation: 05/06/17 Time of Evaluation: 08:29 - Subjective Subjective: Patient appeared to be stable No significant changes medically patient is awake no nausea no vomiting Objective - Vital Signs/Intake and Output Vital Signs (last 24 hours): Temp Pulse Resp BP Pulse Ox 97.8 F 98 H 18 124/76 99 05/06/17 00:03 05/06/17 08:28 05/06/17 00:03 05/06/17 08:28 05/06/17 00:03 - Medications Medications: Current Medications Amlodipine Besylate (Norvasc) 10 mg PO DAILY [facility] Last Admin: 05/06/17 08:28 Dose: 10 mg Ceftriaxone Sodium 1 gm/ (Sodium Chloride) 100 mls @ 100 mls/hr IVPB DAILY [facility] PRN Reason: Protocol Last Admin: 05/06/17 08:18 Dose: Not Given Lactobacillus Acidophilus (Bacid Acidophilus) 1 cap PO BID [facility] Last Admin: 05/06/17 08:17 Dose: 1 cap Lorazepam (Ativan) 0.5 mg PO Q8 PRN PRN Reason: Anxiety Last Admin: 05/05/17 13:43 Dose: 0.5 mg Metoprolol Tartrate (Lopressor) 25 mg PO Q12 [facility] Last Admin: 05/06/17 08:27 Dose: 25 mg Metronidazole (Flagyl) 500 mg PO Q8 [facility] PRN Reason: Protocol Last Admin: 05/06/17 08:17 Dose: 500 mg Mirtazapine (Remeron) 15 mg PO [facility] Last Admin: 05/05/17 21:00 Dose: 15 mg Ondansetron HCl (Zofran Inj) 4 mg IVP Q6 PRN PRN Reason: Nausea/Vomiting Last Admin: 05/04/17 00:19 Dose: 4 mg Pantoprazole Sodium (Protonix Ec Tab) 40 mg PO DAILY [facility] Last Admin: 05/06/17 08:17 Dose: 40 mg Risperidone (Risperdal Tab) 0.5 mg PO [facility] Last Admin: 05/05/17 21:00 Dose: 0.5 mg - Labs Labs: 05/05/17 07:00 05/05/17 07:00 - Constitutional Appears: No Acute Distress - ENT Exam ENT Exam: Mucous Membranes Moist - Neck Exam Neck Exam: absent: Lymphadenopathy - Respiratory Exam Respiratory Exam: NORMAL BREATHING PATTERN. absent: Chest Wall Tenderness, Rales - Cardiovascular Exam Cardiovascular Exam: REGULAR RHYTHM - GI/Abdominal Exam GI & Abdominal Exam: Soft, Normal Bowel Sounds. absent: Guarding - Extremities Exam Extremities Exam: absent: Calf Tenderness - Back Exam Back Exam: absent: CVA tenderness (L), CVA tenderness (R) - Neurological Exam Neurological Exam: Alert Assessment and Plan (1) Hyponatremia Assessment & Plan: Hyponatremia appeared to be corrected serum sodium 139. Patient was given 1 dose Tolvaptan Continue to monitor Status: Acute
[2017-05-06 08:39] VITALS: RESP 20
[2017-05-06] MEDS ORDERED: Pantoprazole 40 mg EC Tab PO SCH (09:00)
--- NOTE | 2017-05-06 11:44 | CP.PCM.DIS ---
Provider - Provider Date of Admission: 05/02/17 09:55 Attending physician: Nicolle Childs MD Primary care physician: none Consults: nephro psych Time Spent in preparation of Discharge (in minutes): 15 Hospital Course - Lab Results Lab Results: Micro Results 05/02/17 11:39 Urine,Clean Catch Urine Culture - Final No Growth (<1,000 CFU/ML) Most Recent Lab Values WBC 13.5 K/uL (4.8-10.8) H 05/05/17 07:00 RBC 5.15 Mil/uL (3.80-5.20) 05/05/17 07:00 Hgb 12.6 g/dL (12.0-16.0) 05/05/17 07:00 Hct 40.6 % (34.0-47.0) 05/05/17 07:00 MCV 78.8 fl (81.0-99.0) L 05/05/17 07:00 MCH 24.5 pg (27.0-31.0) L 05/05/17 07:00 MCHC 31.1 g/dL (33.0-37.0) L 05/05/17 07:00 RDW 15.9 % (11.5-14.5) H 05/05/17 07:00 Plt Count 252 K/uL (130-400) 05/05/17 07:00 MPV 9.6 fl (7.2-11.7) 05/05/17 07:00 Neut % (Auto) 71.7 % (50.0-75.0) 05/05/17 07:00 Lymph % (Auto) 15.9 % (20.0-40.0) L 05/05/17 07:00 [place] % (Auto) 8.8 % (0.0-10.0) 05/05/17 07:00 Eos % (Auto) 2.9 % (0.0-4.0) 05/05/17 07:00 Baso % (Auto) 0.7 % (0.0-2.0) 05/05/17 07:00 Neut # 9.7 K/uL (1.8-7.0) H 05/05/17 07:00 Lymph # 2.2 K/uL (1.0-4.3) 05/05/17 07:00 [place] # 1.2 K/uL (0.0-0.8) H 05/05/17 07:00 Eos # 0.4 K/uL (0.0-0.7) 05/05/17 07:00 Baso # 0.1 K/uL (0.0-0.2) 05/05/17 07:00 D-Dimer, Quantitative 218 ng/mlDDU (0-230) 05/02/17 14:38 Sodium 139 mmol/l (132-148) 05/05/17 07:00 Potassium 4.2 MMOL/L (3.6-5.0) 05/05/17 07:00 Chloride 104 mmol/L (98-107) 05/05/17 07:00 Carbon Dioxide 26 mmol/L (22-30) 05/05/17 07:00 Anion Gap 13 (10-20) 05/05/17 07:00 BUN 10 mg/dl (7-17) 05/05/17 07:00 Creatinine 0.9 mg/dl (0.7-1.2) 05/05/17 07:00 Est GFR ( Amer) > 60 05/05/17 07:00 Est GFR (Non-Af Amer) > 60 05/05/17 07:00 Random Glucose 99 mg/dL (65-105) 05/05/17 07:00 Calcium 10.0 mg/dL (8.4-10.2) 05/05/17 07:00 Phosphorus 2.0 mg/dl (2.5-4.5) L 05/03/17 14:54 Magnesium 1.7 MG/DL (1.6-2.3) 05/03/17 14:54 Total Bilirubin 0.8 mg/dl (0.2-1.3) 05/03/17 00:51 AST 22 U/L (14-36) 05/03/17 00:51 ALT 29 U/L (9-52) 05/03/17 00:51 Alkaline Phosphatase 63 U/L (38-126) 05/03/17 00:51 Troponin I < 0.0120 ng/mL (0.00-0.120) 05/03/17 03:01 Total Protein 6.7 G/DL (6.3-8.2) 05/03/17 00:51 Albumin 3.9 g/dL (3.5-5.0) 05/03/17 00:51 Globulin 2.8 gm/dL (2.2-3.9) 05/03/17 00:51 Albumin/Globulin Ratio 1.4 (1.0-2.1) 05/03/17 00:51 Urine Color Straw (YELLOW) 05/02/17 20:15 Urine Clarity Slighty-cloudy (Clear) 05/02/17 20:15 Urine pH 7.0 (5.0-8.0) 05/02/17 20:15 Ur Specific [place] 1.006 (1.003-1.030) 05/02/17 20:15 Urine Protein Negative mg/dL (NEGATIVE) 05/02/17 20:15 Urine Glucose (UA) Neg mg/dL (Normal) 05/02/17 20:15 Urine Ketones Negative mg/dL (NEGATIVE) 05/02/17 20:15 Urine Blood Moderate (NEGATIVE) 05/02/17 20:15 Urine Nitrate Negative (NEGATIVE) 05/02/17 20:15 Urine Bilirubin Negative (NEGATIVE) 05/02/17 20:15 Urine Urobilinogen 0.2-1.0 mg/dL (0.2-1.0) 05/02/17 20:15 Ur Leukocyte Esterase Mod Hugo/uL (Negative) 05/02/17 20:15 Urine RBC (Auto) 18 /hpf (0-3) H 05/02/17 20:15 Urine Microscopic WBC 16 /hpf (0-5) H 05/02/17 20:15 Ur Squamous Epith Cells < 1 /hpf (0-5) 05/02/17 20:15 Urine Bacteria Rare (<OCC) 05/02/17 20:15 Urine Osmolality 38 mosm/kg (300-1000) L 05/03/17 22:30 Ur Random Sodium 8 mmol/L 05/03/17 22:30 - Hospital Course Hospital Course: 66 y/o lady with hx of HTN, Depression with Psychosis, admitted to [facility] for Depression and Suicidal ideation. Transferred to Telemetry because of Chest Pain, Hyponatremia and Vomiting. Sodium noted to be 122. She was started on 3% NaCl, with close BMP monitoring. Nephrology consulted.Patient received 1 dose of Tolvaptan as well with correction of Na 139. As per nephrology patient most likely had SAIDH secondary to psych meds. Lexapro was discontinued .Psychiatry consulted and patient was started on Remeron abnd risperdal. At present patient is hemodynamically stable, Na 139 , with minimal nausea. Will discharge to psych for continuation of treatment for her depression. Will continue to follow up in psych 1.Hyponatremia with decreased serum osmolality, resolved Prob SIADH - Low Serum Osm, Normal Urine Osm. Pt was started on 3% NaCl and then discontinued after overcorrection, risk for Osmotic Demyelination Synd. Nephrology consulted: DR Lancaster and Dr Castaneda d/c Lexapro. TSH normal CT of head : neg received Tolvapatan 1 dose Na 139 2. Nausea /Vomiting with mild abdominal discomfort, resolved Acute N/V may be due to low Sodium CT of abd ordered however pt unable to tolerate PO contrast- ordered Abd Sonogram : normal 3.Suspected UTI (urinary tract infection) Urinalysis with Leukoest , pyuria and some hematuria. Leukocytosis, no fever. Received IV ceftriaxone 5 days Urine c/s: negative 4. Depression, psychotic Chronic Psych consult. hold off on Lexapro for now due to low Sodium Dr Lal rec Risperdal and Remeron, Ativan prn for anxiety Will d/c to psych for further treatment 5. Chest pain, ACS ruled out Chest Discomfort prob GI due to vomiting Troponin normal and EKG no change-ACS ruled out Ddimer normal CXR negative started pt on Protonix 6.HTN (hypertension) Chronic cont Norvasc. 7. Tachycardia started Lopressor 25 mg BID 8. Diarrhea- resolved empirically was started on Flagyl PO will d/c flagyl 9.DVT prophylaxis received lovenox Discharge Exam - Head Exam Head Exam: ATRAUMATIC, NORMAL INSPECTION, NORMOCEPHALIC - Eye Exam Eye Exam: EOMI, Normal appearance, PERRL Pupil Exam: NORMAL ACCOMODATION - ENT Exam ENT Exam: Mucous Membranes Moist, Normal Exam - Neck Exam Neck exam: Full Rom, Normal Inspection - Respiratory Exam Respiratory Exam: Clear to PA & Lateral, NORMAL BREATHING PATTERN. absent: Rales, Rhonchi, Wheezes - Cardiovascular Exam Cardiovascular Exam: REGULAR RHYTHM, RRR, +S1, +S2. absent: JVD - GI/Abdominal Exam GI & Abdominal Exam: Normal Bowel Sounds, Soft. absent: Distended, Guarding, Rebound, Tenderness - Rectal Exam Rectal Exam: Deferred - Extremities Exam Extremities exam: normal capillary refill, normal inspection, pedal pulses present - Back Exam Back exam: NORMAL INSPECTION - Neurological Exam Neurological exam: Alert, CN II-XII Intact - Psychiatric Exam Psychiatric exam: Anxious, Flat Affect - Skin Skin Exam: Dry, Intact, Normal Color, Warm Discharge Plan - Follow Up Plan Condition: IMPROVED Disposition: DISCH TO PSYCH HOSP PLAN READ Patient education suggested?: Yes Instructions: Syndrome of Inappropriate Antidiuretic Hormone Secretion (DC)
--- NOTE | 2017-05-06 13:01 | CARD ---
APPROVED REPORT EKG Measurement Heart [id number] <Conclusion> Normal sinus rhythm Normal ECG
[2017-05-06 15:15] LABS: C DIFF TOXIN A B NEGATIVE (NEGATIVE)
[2017-05-06 15:42] LABS: FECAL LEUKOCYTES NEGATIVE (NEGATIVE)
[2017-05-06 16:29] VITALS: TEMP 98.1; O2SAT 97
[2017-05-06 21:04] VITALS: BP 132/54; PULSE 69
== END 2017-05-06 22:53 | DRG 644 ==
LOC: H.ER 09:34 → H.ERHOLD 09:55 → H.TEL 14:15 → H.MEDSURG1 05-05 18:55
PROVIDERS: ADMIT Internal Medicine; ATTEND Internal Medicine
PROC: 3E0234Z Introduction of Serum, Toxoid and Vaccine into Muscle, Percutaneous Approach (ICD-10-PCS; principal; 2017-05-02)
DX: E22.2 Syndrome of inappropriate secretion of antidiuretic hormone (principal); N39.0 Urinary tract infection, site not specified; F32.3 Major depressive disorder, single episode, severe with psychotic features; F41.9 Anxiety disorder, unspecified; I10 Essential (primary) hypertension; R11.2 Nausea with vomiting, unspecified; R19.7 Diarrhea, unspecified; R31.9 Hematuria, unspecified; R07.89 Other chest pain; R00.0 Tachycardia, unspecified; Z23 Encounter for immunization

== ENCOUNTER 2017-05-06 12:12 | Inpatient (IN) | payer MEDICARE ==
[2017-05-06] MEDS ORDERED: Magnesium Hydroxide Susp 30 ml UD PO PRN (23:14)
[2017-05-06] MEDS ORDERED: Alum-Mag Hydrox-Simethicone Susp (30 mL) PO PRN (23:14)
[2017-05-06] MEDS ORDERED: Bismuth Subsalicylate 262 mg/15 ml Sus (240 ml) PO PRN (23:14)
--- NOTE | 2017-05-06 23:18 | PCM.BM ---
<Patria Markham - Last Filed: 05/06/17 23:16> Treatment Plan Problems - Problems identified on initial assessmt Hopelessness/Helplessness Date Initiated: 05/06/17 Time Initiated: 23:17 Assessment reference: NA Status: Active Treatment assets and liabiliti Patient Assests: adapts well, cooperative, negotiates basic needs Patient Liabilities: poor support system, relationship conflicts - Milieu Protocol Maintain good personal hygiene: daily Encourage regular showers, daily Remind patient to perform daily oral care, daily Assist patient to perform ADL's Conduct patient checks and document Observation sheet: Q15 minutes Maintain personal safety: every shift Educate patient to report safety concerns to staff, every shift Monitor environment for contraband/sharps Medication safety: Monitor for expected outcome, potential side effects: every shift, Assess barriers to learning: every shift, Assess readiness for medication education: every shift <Liberty Lal - Last Filed: 05/07/17 11:49> - Diagnosis (1) Major depressive disorder Status: Chronic Interventions: Individual and group therapy, Psychoeducation, Medication Management 05/07/17 11:49 <Mary Hook - Last Filed: 05/08/17 15:58> Family Contact Family involvement: Patient does not wish Family/SO involvement - Goals for Treatment Patient goals for treatment: Pt to be encouraged to attend activity and clinical groups 3-5x per week to identify at least 2 contributing factors to depression and suicide attempt. Psycho-education to be provided to patient/ family regarding benefits of medications and treatment adherence. Pt to be encouraged to participate in group milieu to develop effective coping skills to reduce depression and free of suicide ideation. Coordinate discharge resource needs by providing referral for psychiatric treatment follow up in the community. Discharge/Continuing Care - Education Needs Education Needs: Patient Medication, Patient Diagnosis/Disease Process, Patient Coping Skills, Patient Placement options, Patient Community resources, Patient Activities of Daily Living, Patient Nutrition, Patient Uses of Medical Equipment , Patient Health Practices/Safety, Patient Personal Hygiene/Grooming, Patient Aftercare Safety Plan - Discharge Discharge Criteria: Tolerates medication w/o severe side effects, Normal sleep pattern, Ability to care for self, Reduction of target symptoms Discharge to:: Custodial - Additional Comments 05/08/17 15:57 Pt seen and discussed in team meeting. Reason for admission reviewed and discussed. Pt's social and medical issues reviewed. Tx plan reviewed. SW to continue to follow pt. - Treatment Team Participation Discussed with Family/SO: No Was Patient/Family/SO present at Treatment Team Meeting: Yes
[2017-05-07] MEDS: Pantoprazole 40 mg EC Tab PO SCH (08:53)
[2017-05-07] MEDS ORDERED: Lactobacillus Acidophilus 500 MU Cap PO SCH (09:00)
--- NOTE | 2017-05-07 11:50 | PCM.PSYCH ---
Initial Psychiatric Evaluation - Initial Psychiatric Evaluation Type of Admission: Voluntary Legal Status: Capacity Chief Complaint (in patient's own words): "I'm depressed." Patient's Reaction to Hospitalization: HPI: 66 year old female patient with PMHx of HTN, was initially admitted to the psychiatry unit for depression w/ psychosis, then transferred to the medical unit after she had chest pain and hyponatremia, now transferred back to psychiatry w/ resolved hyponatremia. Patient continues to report feels depressed and anxious in the context of having social stressors. She denies current ideation to harm herself. Denies current AH/VH. +Paranoia PMHx: HTN PSHx: x 2 Allergies: Tetracycline, Olanzapine, Doxepin SHx: Denies of smoking, EtOH or illicit drug usage Current Medications: Active Medications Generic Name Dose Route Start Last Admin Trade Name Freq PRN Reason Stop Dose Admin Acetaminophen 650 mg 05/06/17 23:14 05/07/17 00:00 Tylenol 325mg Tab PO 650 mg Q4 PRN Administration Pain, moderate (4-7) Al Hydrox/Mg Hydrox/Simethicone 30 ml 05/06/17 23:14 Maalox Plus 30 Ml PO Q4 PRN Dyspepsia Amlodipine Besylate 10 mg 05/07/17 09:00 05/07/17 08:53 Norvasc PO 10 mg DAILY ZECHARIAH Administration Bismuth Subsalicylate 524 mg 05/06/17 23:14 Pepto-Bismol PO Q4 PRN Diarrhea Lorazepam 0.5 mg 05/06/17 23:14 Ativan PO 05/20/17 23:15 HS PRN Insomnia Lorazepam 0.5 mg 05/06/17 23:14 Ativan PO 05/20/17 23:15 Q6 PRN Anixety/Agitation Magnesium Hydroxide 30 ml 05/06/17 23:14 Milk Of Magnesia PO HS PRN Constipation Metoprolol Tartrate 25 mg 05/07/17 09:00 05/07/17 08:53 Lopressor PO 25 mg Q12 ZECHARIAH Administration Mirtazapine 15 mg 05/07/17 22:00 Remeron PO HS ZECHARIAH Pantoprazole Sodium 40 mg 05/07/17 09:00 05/07/17 08:53 Protonix Ec Tab PO 40 mg DAILY ZECHARIAH Administration Risperidone 0.5 mg 05/07/17 22:00 Risperdal Tab PO HS [facility] Past Psychiatric History - Past Psychiatric History Previous Treatment History: Inpatient Pertinent Medical Hx (Current Medical&Sleep Prob, Allergies): Allergies Allergy/AdvReac Type Severity Reaction Status Date / Time doxepin [From Sinequan] Allergy RASH Verified 04/30/17 11:25 olanzapine [From Zyprexa] Allergy RASH Verified 04/30/17 11:25 Tetracyclines Allergy RASH Verified 04/30/17 11:25 LORazepam [Ativan] 0.5 mg PO Q8 PRN tab 05/06/17 Lactobacillus Acidophilus [Bacid Acidophilus] 1 cap PO BID cap 05/06/17 Metoprolol Tartrate [Lopressor] 25 mg PO Q12 tab 05/06/17 Mirtazapine [Remeron] 15 mg PO HS tab 05/06/17 Pantoprazole [Protonix EC Tab] 40 mg PO DAILY ect 05/06/17 amLODIPine [Norvasc] 10 mg PO DAILY tab 05/06/17 risperiDONE [RisperDAL Tab] 0.5 mg PO HS tab 05/06/17 metroNIDAZOLE [Flagyl] 500 mg PO Q8 05/07/17 Review of Systems - Psychiatric Psychiatric: As Per HPI, Abnormal Sleep Pattern, Anhedonia, Anxiety, Change in Appetite, Depression, Difficulty Concentrating, Irritability, Mood Swings, Panic Attacks, Paranoia Mental Status Examination - Personal Presentation Personal Presentation: Looks stated age - Affect Affect: Constricted - Motor Activity Motor Activity: Calm - Reliability in Providing Information Reliability in Providing Information: Poor, due to altered mood - Speech Speech: Organized - Mood Mood: Depressed, Anxious - Formal Thought Process Formal Thought Process: Paranoia - Hallucinations/Delusions Additional comments: No AH/VH - Obsessions/Compulsions Obsessions: No Compulsions: No - Cognitive Functions Orientation: Person, Place, Situation, Time Sensorium: Alert Judgement: Intact, as evidence by: Insight regarding need for hospitalization Memory: Recent intact, as evidence by: Ability to recall events of the day, Remote impaired as evidenced by: Inability to recall sig life events - Risk Risk: Diminished functioning - Strength & Assets Inventory Strength & Assets Inventory: Cooperative DSM 5 DX - DSM 5 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
[2017-05-08] MEDS: Pantoprazole 40 mg EC Tab PO SCH (08:55)
--- NOTE | 2017-05-08 12:26 | PCM.PYCHPN ---
Psychiatric Progress Note - Psychiatric Progress Note Patient seen today, length of contact: Patient evaluated, case discussed with team, chart reviewed Patient Chief Complaint: "I'm okay." Problems Identified/Issues Discussed: Patient submitted a 48 hour letter requesting discharge, stating that she wants to leave because she is not getting the medications that help her. She later retracted it and agreed to stay until tomorrow so SW could arrange discharge. She only agreed to take her previous medications of Trazodone and Restoril. Patient continues to report difficulty sleeping at night. Psychoeducation provided to the patient. Importance of compliance with treatment was emphasized. She denies acute psychotic symptoms/paranoia. Medication Change: Yes (Restart Trazodone and Restoril; Stop Remeron and Risperdal) Medical Record Reviewed: Yes Consults ordered or reviewed: Medicine consult Mental Status Examination - Cognitive Function Orientation: Person, Place, Situation, Time Memory: Intact Association: WNL Fund of Knowledge: [facility] Decription of patient's judgement and insights: Fair I/J - Mood Mood: Anxious - Affect Affect: Constricted - Formal Thought Process Formal Thought Process: No Impairment Psychotic Thoughts and Behaviors: NO AH/VH/paranoia/delusions - Suicidal Ideation Suicidal Ideation: No - Homicidal Ideation Homicidal Ideation: No Goal/Treatment Plan - Goal/Treatment Plan Need for Continued Stay: Discharge may exacerbated symptoms Progress Toward Problem(s) and Goals/Treatment Plan: Major Depressive Disorder with Psychotic Features; patient is requesting to be discharged from the hospital; she will be discharged tomorrow. -Individual and group therapy -Psychoeducation -Patient is not agreeable to taking Risperdal or Remeron -Restart Trazodone and Restoril -Disposition planning -Medicine consult Estimated Date of D/C: 05/09/17 - Smoking Cessation Smoking Cessation Initiated: No Reason for not providing: Not indicated
[2017-05-08 15:29] VITALS: RESP 19
[2017-05-09 05:55] VITALS: BP 135/89; PULSE 78; TEMP 97.3
--- NOTE | 2017-05-09 09:18 | PCM.PYCHDC ---
Mental Status Examination - Mental Status Examination Orientation: Person, Place, Situation, Time Memory: Intact Mood: Neutral Affect: Broad Speech: Appropriate Concentration: WNL Association: WNL Fund of Knowledge: WNL Formal Thought Process: No Impairment Description of patient's judgement and insight: Fair I/J Psychotic Thoughts and Behaviors: NO AH/VH/paranoia/delusions Suicidal Ideation: No Current Homicidal Ideation?: No Discharge Summary - Discharge Note Reason for Hospitalization: HPI: 66 year old female patient with PMHx of HTN, was initially admitted to the psychiatry unit for depression w/ psychosis, then transferred to the medical unit after she had chest pain and hyponatremia, now transferred back to psychiatry w/ resolved hyponatremia. Patient continues to report feels depressed and anxious in the context of having social stressors. She denies current ideation to harm herself. Denies current AH/VH. +Paranoia PMHx: HTN PSHx: x 2 Allergies: Tetracycline, Olanzapine, Doxepin SHx: Denies of smoking, EtOH or illicit drug usage Consultations:: List each consultation separately and include: 1. Reason for request. 2. Findings. 3. Follow-up Consultations: Medicine consult Summary of Hospital Course include:: 1. Description of specific treatment plan utilized for patients during their course of treatmen. 2. Summarize the time- course for resolution of acute symptoms and/or regressed behaviors. 3. Describe issues identified and worked on during hospitalization. 4. Describe medication utilized. 5. Describe medical problems identified and treated. 6. Reassessment of suicide risk Summary of Hospital Course: Patient was admitted to the geriatric psychiatry unit. She submitted a 48 hour letter, then retracted it and agreed to stay in the hospital until today. She was only agreeable to take medications that she has taken in the past: Trazodone and Restoril. Patient denies acute AH/VH/SI/HI/depression/anxiety/ paranoia. She is psychiatrically stable for discharge and outpatient referral to [facility]. (see notes). Individual and group therapy were provided. Psychoeducation was provided. - Diagnosis (1) Major depressive disorder Current Visit: No Status: Chronic - Final Diagnosis (DSM 5) Condition upon Discharge: STABLE DSM 5: Major Depressive Disorder Disposition: HOME/ ROUTINE Follow-up Treatment Plan: Major Depressive Disorder; patient is psychiatrically stable for discharge. -Individual and group therapy -Psychoeducation -Continue Trazodone and Restoril -Medicine consult -Discharge with outpatient follow-up Prescriptions/Medication Reconciliation: amLODIPine [Norvasc] 10 mg PO DAILY #30 tab Metoprolol Tartrate [Lopressor] 25 mg PO Q12 #60 tab Pantoprazole [Protonix EC Tab] 40 mg PO DAILY #30 ect Temazepam [Restoril] 15 mg PO HS #30 cap traZODone [Desyrel] 100 mg PO HS #30 tab - Smoking Cessation Smoking Cessation Medication prescribed: No Reason for not providing: Not indicated - Antipsychotic Medications Pt discharged on 2 or more routine antipsychotic medications: No
[2017-05-09] MEDS: Pantoprazole 40 mg EC Tab PO SCH (09:21)
== END 2017-05-09 14:45 | disposition home or self-care (01) | DRG 881 ==
LOC: H.STEP 22:42
PROVIDERS: ADMIT Psychiatry & Neurology Psychiatry; ATTEND Psychiatry & Neurology Psychiatry
PROC: GZHZZZZ Group Psychotherapy (ICD-10-PCS; principal; 2017-05-06)
DX: F32.9 Major depressive disorder, single episode, unspecified (principal); I10 Essential (primary) hypertension

== ENCOUNTER 2017-05-23 17:43 | Emergency (ER) | payer MEDICARE, OTHER ==
[2017-05-23 17:44] VITALS: BMI 25.0
--- NOTE | 2017-05-23 17:49 | ED PDOC ---
HPI: Psych/Substance Abuse Time Seen by Provider: 05/23/17 17:46 Chief Complaint (Provider): crisis eval History Per: Patient, Family (Daughter is translating for patient in Jordanian) Additional Complaint(s): 66 year-old female presents to emergency department for crisis evaluation. Patient arrives with her daughter who is also being evaluated by crisis department. Patient is having thoughts of wanting to harm herself that started earlier today. She has history of depression. Patient offers no acute medical complaints and denies any alcohol or drug use. Patient is currently non- domiciled and lives in the [facility] in [place]. Past Medical History Reviewed: Historical Data, Nursing Documentation, Vital Signs - Medical History PMH: Anxiety, Depression, HTN - Family History Family History: States: No Known Family Hx - Living Arrangements Living Arrangements: Other (non-domiciled) - Social History Current smoker - smoking cessation education provided: No Alcohol: None Drugs: Denies - Home Medications Home Medications: Ambulatory Orders Medication Instructions Recorded Metoprolol Tartrate [Lopressor] 25 mg PO Q12 #60 tab 05/08/17 Pantoprazole [Protonix EC Tab] 40 mg PO DAILY #30 ect 05/08/17 Temazepam [Restoril] 15 mg PO HS #30 cap 05/08/17 amLODIPine [Norvasc] 10 mg PO DAILY #30 tab 05/08/17 traZODone [Desyrel] 100 mg PO HS #30 tab 05/08/17 - Allergies Allergies/Adverse Reactions: Allergies Allergy/AdvReac Type Severity Reaction Status Date / Time doxepin [From Sinequan] Allergy RASH Verified 04/30/17 11:25 olanzapine [From Zyprexa] Allergy RASH Verified 04/30/17 11:25 Tetracyclines Allergy RASH Verified 04/30/17 11:25 Review of Systems ROS Statement: Except As Marked, All Systems Reviewed And Found Negative Psych: Positive for: Suicidal ideation Physical Exam - Reviewed Nursing Documentation Reviewed: Yes Vital Signs Reviewed: Yes - Physical Exam Appears: Positive for: Well, Non-toxic, No Acute Distress Head Exam: Positive for: ATRAUMATIC Skin: Negative for: Rash Eye Exam: Positive for: Normal appearance Cardiovascular/Chest: Positive for: Regular Rate, Rhythm Respiratory: Positive for: Normal Breath Sounds Gastrointestinal/Abdominal: Positive for: Soft. Negative for: Tenderness Extremity: Positive for: Normal ROM Neurologic/Psych: Positive for: Alert, Oriented - ECG O2 Sat by Pulse Oximetry: 97 Pulse Ox Interpretation: Normal Medical Decision Making Medical Decision Makin66 year old with suicidal ideation Plan: Crisis eval 1:1 bedside observation As per crisis counselor and psychiatrist [facility]em[facility] Dr. Byrnes, patient does not meet criteria for admission and is stable for discharge. Disposition - Clinical Impression Clinical Impression: Depression - Patient ED Disposition Is Patient to be Admitted: No Counseled Patient/Family Regarding: Diagnosis, Need For Followup - Disposition Referrals: [facility] [Outside] Disposition: Routine/Home Disposition Time: 18:37 Condition: STABLE Instructions: Depression Forms: [facility] (Jordanian) Print Language: KAZAKH
[2017-05-23 18:06] VITALS: BP 124/69; PULSE 83; RESP 18; TEMP 99.2; O2SAT 97
== END 2017-05-23 18:40 | disposition home or self-care (01) ==
LOC: H.ER 17:43
DX: F32.9 Major depressive disorder, single episode, unspecified (principal)

== ENCOUNTER 2017-07-11 20:41 | Inpatient (IN) | payer MEDICARE, MEDICAID ==
[2017-07-11 20:41] VITALS: BMI 25.0
--- NOTE | 2017-07-11 21:28 | ED PDOC ---
"HPI: SOB/CHF/COPD Time Seen by Provider: 07/11/17 21:03 Chief Complaint (Nursing): Shortness Of Breath History Per: Patient History/Exam Limitations: no limitations Onset/Duration Of Symptoms: Days Current Symptoms Are (Timing): Gone Now Additional Complaint(s): Homeless F w/ hx of HTN, depression, anxiety p/w SOB yesterday, states that it occurred in the afternoon during a coughing fit and resolved spontaneously, denies chest pain, fevers, chills. States that for the past 3 days she's had a persistent cough productive of white phlegm. States she has trouble sleeping. Past Medical History Reviewed: Historical Data, Nursing Documentation, Vital Signs Vital Signs: Last Vital Signs Temp 98.4 F 07/12/17 05:12 Pulse 78 07/12/17 06:12 Resp 19 07/12/17 06:12 BP 137/89 07/12/17 06:12 Pulse Ox 100 07/12/17 06:12 - Medical History PMH: Anxiety, Depression, HTN Denies: Diabetes, Hepatitis, HIV, Chronic Kidney Disease, Seizures, Sexually Transmitted Disease - Family History Family History: States: Unknown Family Hx - Immunization History Hx Tetanus Toxoid Vaccination: No Hx Influenza Vaccination: No Hx Pneumococcal Vaccination: No - Home Medications Home Medications: Ambulatory Orders Medication Instructions Recorded Metoprolol Tartrate [Lopressor] 25 mg PO Q12 #60 tab 05/08/17 Pantoprazole [Protonix EC Tab] 40 mg PO DAILY #30 ect 05/08/17 Temazepam [Restoril] 15 mg PO HS #30 cap 05/08/17 amLODIPine [Norvasc] 10 mg PO DAILY #30 tab 05/08/17 traZODone [Desyrel] 100 mg PO HS #30 tab 05/08/17 - Allergies Allergies/Adverse Reactions: Allergies Allergy/AdvReac Type Severity Reaction Status Date / Time doxepin [From Sinequan] Allergy RASH Verified 05/30/17 12:22 olanzapine [From Zyprexa] Allergy RASH Verified 05/30/17 12:22 Tetracyclines Allergy RASH Verified 05/30/17 12:22 Curb-65 Severity Score - CURB-65 Severity Score Confusion: No Bun >19mg/dl (>7mmol/L): No Respiratory Rate greater than/equal to 30: No Systolic BP <90 or Diastolic BP less than/equal 60mmHg: No Age >64: No Curb-65 Score: 0 Percentage 30-day mortality: 0.6% Review of Systems ROS Statement: Except As Marked, All Systems Reviewed And Found Negative Respiratory: Positive for: Shortness of Breath Physical Exam - Reviewed Nursing Documentation Reviewed: Yes Vital Signs Reviewed: Yes - Physical Exam Appears: Positive for: Well, Non-toxic, No Acute Distress Head Exam: Positive for: ATRAUMATIC, NORMAL INSPECTION, NORMOCEPHALIC Skin: Positive for: Normal Color, Warm, DRY Eye Exam: Positive for: EOMI, Normal appearance, PERRL ENT: Positive for: Normal ENT Inspection Neck: Positive for: Normal, Painless ROM Cardiovascular/Chest: Positive for: Regular Rate, Rhythm Respiratory: Positive for: CNT, Normal Breath Sounds Gastrointestinal/Abdominal: Positive for: Normal Exam, Soft Back: Positive for: Normal Inspection Extremity: Positive for: Normal ROM Neurologic/Psych: Positive for: Alert, Oriented - Laboratory Results Result Diagrams: 07/11/17 21:50 07/11/17 22:20 - ECG ECG Rhythm: Positive for: Normal QRS, Normal ST Segment, Sinus Rhythm O2 Sat by Pulse Oximetry: 98 Pulse Ox Interpretation: Normal Medical Decision Making Medical Decision Making: A/P: Hx of HTN, Depression, Anxiety p/w resolved SOB -patient comfortable, non-ischemic EKG -will get troponin to risk stratify patient, will get dimer to r/o PE given tachy upon presentation EXAM: CT Angiography Chest With Intravenous Contrast EXAM DATE/TIME: 07/11/2017 11:46 PM CLINICAL HISTORY: 66 years old, female; Signs and symptoms; Shortness of breath; Additional info: R/O pe TECHNIQUE: Axial computed tomographic angiography images of the chest with intravenous contrast using pulmonary embolism protocol. All CT scans at this facility use one or more dose reduction techniques, viz.: automated exposure control; ma/kV adjustment per patient size (including targeted exams where dose is matched to indication; i.e. head); or iterative reconstruction technique. MIP reconstructed images were created and reviewed. Coronal and sagittal reformatted images were created and reviewed. CONTRAST: 90 mL of [id number] administered intravenously. COMPARISON: CR - CHEST TWO VIEWS (PA/LAT) 2017-07-11 21:15 FINDINGS: The cardiac silhouette is borderline prominent. There is mediastinal and cardiac shift to the right presumably chronic, priors not provided. There are scattered patchy groundglass opacities bilaterally more prominent in the right lung. Right lower lung infiltrate with scattered areas of consolidation likely of infectious/atelectatic etiology however followup recommended to ensure resolution. No pulmonary embolism identified although evaluation of the distalmost branches is limited by motion. The ascending aorta measures 3.3 cm in diameter and the descending aorta measures 2.3 cm in diameter. No aortic dissection. JOE BEAR | Final Radiology Report CONFIDENTIALITY STATEMENT This report is intended only for use by the referring physician, and only in accordance with law. If you received this in error, call [phone]. Page 2 of 2 No pleural effussions. A small amount of fluid is noted in the pericardial recess. Probable gallstones although incompletely imaged. IMPRESSION: Right lower lung infiltrate with scattered areas of consolidation likely of infectious/atelectatic etiology however followup recommended to ensure resolution. Groundglass opacities bilaterally more prominent on the right that are a nonspecific finding however could be indicative of developing infectious/inflammatory process or developing edema. Probable cholelithiasis 6AM Patient has evidence of bilateral PNA on chest CT. Given age and lack of PMD and bilateral PNA, will admit for IV ABx, CAP. Case discussed wtih DR. Bush. Disposition - Clinical Impression Clinical Impression: Bilateral pneumonia - Disposition Disposition Time: 06:00 Condition: SERIOUS"
[2017-07-11 22:00] LABS: BASO # 0.1 K/uL (0.0-0.2); EOS # 0.4 K/uL (0.0-0.7); EOS % 4.1 % (0.0-4.0); HEMOGLOBIN 9.5 g/dL (12.0-16.0); LYMPH # 1.7 K/uL (1.0-4.3); LYMPH % 17.3 % (20.0-40.0); MEAN CELL VOLUME 76.1 fl (81.0-99.0); MEAN CORPUSCULAR HEMOGLOBIN 23.8 pg (27.0-31.0); MEAN CORPUSCULAR HGB CONC 31.3 g/dL (33.0-37.0); MONO # 0.9 K/uL (0.0-0.8); NEUT # 6.8 K/uL (1.8-7.0); NEUT % 68.6 % (50.0-75.0); RED CELL DISTRIBUTION WIDTH 16.3 % (11.5-14.5)
[2017-07-11 23:02] LABS: BLOOD UREA NITROGEN 26 mg/dl (7-17); CALCIUM 9.4 mg/dL (8.4-10.2); GFR AFRICAN-AMERICAN > 60; GFR NON-AFRICAN AMERICAN > 60
[2017-07-12] MEDS ORDERED: Iodixanol 320 MG/ML 100 ML BOTTLE IV ONE (01:27)
--- NOTE | 2017-07-12 02:43 | CT ---
EXAM: CT Angiography Chest With Intravenous Contrast EXAM DATE/TIME: 07/11/2017 11:46 PM CLINICAL HISTORY: 66 years old, female; Signs and symptoms; Shortness of breath; Additional info: R/O pe TECHNIQUE: Axial computed tomographic angiography images of the chest with intravenous contrast using pulmonary embolism protocol. All CT scans at this facility use one or more dose reduction techniques, viz.: automated exposure control; ma/kV adjustment per patient size (including targeted exams where dose is matched to indication; i.e. head); or iterative reconstruction technique. MIP reconstructed images were created and reviewed. Coronal and sagittal reformatted images were created and reviewed. CONTRAST: 90 mL of [id number] administered intravenously. COMPARISON: CR - CHEST TWO VIEWS (PA/LAT) 2017-07-11 21:15 FINDINGS: The cardiac silhouette is borderline prominent. There is mediastinal and cardiac shift to the right presumably chronic, priors not provided. There are scattered patchy groundglass opacities bilaterally more prominent in the right lung. Right lower lung infiltrate with scattered areas of consolidation likely of infectious/atelectatic etiology however followup recommended to ensure resolution. No pulmonary embolism identified although evaluation of the distalmost branches is limited by motion. The ascending aorta measures 3.3 cm in diameter and the descending aorta measures 2.3 cm in diameter. No aortic dissection. No pleural effussions. A small amount of fluid is noted in the pericardial recess. Probable gallstones although incompletely imaged. IMPRESSION: Right lower lung infiltrate with scattered areas of consolidation likely of infectious/atelectatic etiology however followup recommended to ensure resolution. Groundglass opacities bilaterally more prominent on the right that are a nonspecific finding however could be indicative of developing infectious/inflammatory process or developing edema. Probable cholelithiasis.
[2017-07-12] MEDS ORDERED: cefTRIAXone 2 GM in Sodium Chloride 0.9% 100 ML IVPB STA (03:47)
[2017-07-12] MEDS ORDERED: Azithromycin 500 MG in Sodium Chloride 0.9% 250 ML IVPB STA (03:47)
[2017-07-12] MEDS ORDERED: Sodium Chloride 0.9% 1,000 ML IV STA (03:48)
[2017-07-12 05:56] LABS: VENOUS BLOOD GAS BASE EXCESS 1.5 mmol/L (0.0-2.0); VENOUS BLOOD GAS PCO2 49 mmHg (40-60); VENOUS BLOOD GAS PO2 50 mm/Hg (30-55); VENOUS BLOOD PH 7.36 (7.32-7.43)
[2017-07-12] MEDS ORDERED: cefTRIAXone (Rocephin) 2 gm Inj IVPB SCH (09:00)
[2017-07-12] MEDS ORDERED: Azithromycin 500 MG in Sodium Chloride 0.9% 250 ML IVPB SCH (09:00)
--- NOTE | 2017-07-12 09:47 | RAD ---
HISTORY: COMPARISON: 04/30/2017 TECHNIQUE: Chest PA and lateral FINDINGS: LINES AND TUBES: None. LUNG AND PLEURA: The lungs are well inflated and clear. HEART AND MEDIASTINUM: The heart is not enlarged. There is unfolding of the aorta. The hilar and mediastinal contours are within normal limits. SKELETAL STRUCTURES: The bony structures are within normal limits for the patient's age. VISUALIZED UPPER ABDOMEN: Normal. OTHER FINDINGS: None. IMPRESSION: No active pulmonary disease. Stable unfolding of the aorta.
[2017-07-12] MEDS: Enoxaparin 40 mg Syringe SC SCH (13:30)
[2017-07-12] MEDS: Pantoprazole 40 mg EC Tab PO SCH (13:37)
--- NOTE | 2017-07-12 18:12 | CARD ---
APPROVED REPORT EKG Measurement Heart [id number] <Conclusion> Normal sinus rhythm Normal ECG
--- NOTE | 2017-07-12 21:44 | CP.PCM.HP ---
Past Patient History - Infectious Disease Hx of Infectious Diseases: None - Tetanus Immunizations Tetanus Immunization: Unknown - Past Medical History & Family History Past Medical History?: Yes - Past Social History Smoking Status: Never Smoked - CARDIAC Hx Hypertension: Yes - PULMONARY Hx Respiratory Disorders: No - NEUROLOGICAL Hx Seizures: No - HEENT Hx HEENT Problems: No - RENAL Hx Chronic Kidney Disease: No - ENDOCRINE/METABOLIC Hx Endocrine Disorders: No - HEMATOLOGICAL/ONCOLOGICAL Hx Human Immunodeficiency Virus (HIV): No - INTEGUMENTARY Hx Dermatological Problems: No - MUSCULOSKELETAL/RHEUMATOLOGICAL Hx Musculoskeletal Disorders: Yes Hx Falls: Yes - GASTROINTESTINAL Hx Gastrointestinal Disorders: No - GENITOURINARY/GYNECOLOGICAL Hx Sexually Transmitted Disorders: No - PSYCHIATRIC Hx Anxiety: Yes Hx Depression: Yes Hx Substance Use: No - SURGICAL HISTORY Hx Surgeries: Yes Hx Section: Yes - ANESTHESIA Hx Anesthesia: Yes Hx Anesthesia Reactions: No Hx Malignant Hyperthermia: No Meds Allergies/Adverse Reactions: Allergies Allergy/AdvReac Type Severity Reaction Status Date / Time doxepin [From Sinequan] Allergy RASH Verified 05/30/17 12:22 olanzapine [From Zyprexa] Allergy RASH Verified 05/30/17 12:22 Tetracyclines Allergy RASH Verified 05/30/17 12:22 Results - Vital Signs Recent Vital Signs: Last Vital Signs Temp 98.7 F 07/12/17 20:00 Pulse 75 07/12/17 20:00 Resp 20 07/12/17 20:00 BP 127/80 07/12/17 20:00 Pulse Ox 97 07/12/17 20:00 - Labs Result Diagrams: 07/11/17 21:50 07/11/17 22:20 Labs: Laboratory Results - last 24 hr 07/11/17 07/11/17 07/11/17 21:50 21:50 22:20 WBC 10.0 RBC 4.00 Hgb 9.5 L D Hct 30.4 L MCV 76.1 L D MCH 23.8 L MCHC 31.3 L RDW 16.3 H Plt Count 280 MPV 9.0 Neut % (Auto) 68.6 Lymph % (Auto) 17.3 L [place] % (Auto) 9.0 Eos % (Auto) 4.1 H Baso % (Auto) 1.0 Neut # (Auto) 6.8 Lymph # (Auto) 1.7 [place] # (Auto) 0.9 H Eos # (Auto) 0.4 Baso # (Auto) 0.1 D-Dimer, Quantitative 309 H pO2 VBG pH VBG pCO2 VBG HCO3 VBG Total CO2 VBG O2 Sat (Calc) VBG Base Excess VBG Potassium Glucose Lactate FiO2 Sodium 140 Potassium 4.0 Chloride 106 Carbon Dioxide 22 Anion Gap 16 BUN 26 H Creatinine 0.9 Est GFR ( Amer) > 60 Est GFR (Non-Af Amer) > 60 Random Glucose 111 H Calcium 9.4 Troponin I < 0.0120 Venous Blood Potassium 07/12/17 05:53 WBC RBC Hgb Hct MCV MCH MCHC RDW Plt Count MPV Neut % (Auto) Lymph % (Auto) [place] % (Auto) Eos % (Auto) Baso % (Auto) Neut # (Auto) Lymph # (Auto) [place] # (Auto) Eos # (Auto) Baso # (Auto) D-Dimer, Quantitative pO2 50 VBG pH 7.36 VBG pCO2 49 VBG HCO3 25.7 VBG Total CO2 29.2 H VBG O2 Sat (Calc) 89.1 H VBG Base Excess 1.5 VBG Potassium 3.9 Glucose 102 Lactate 1.1 FiO2 21.0 Sodium 137.0 Potassium Chloride 109.0 H Carbon Dioxide Anion Gap BUN Creatinine Est GFR ( Amer) Est GFR (Non-Af Amer) Random Glucose Calcium Troponin I Venous Blood Potassium 3.9
[2017-07-13] MEDS: Azithromycin 500 MG in Sodium Chloride 0.9% 250 ML IVPB SCH (05:35)
[2017-07-13 07:48] LABS: BASO # 0.1 K/uL (0.0-0.2); BASO % 0.7 % (0.0-2.0); EOS # 0.7 K/uL (0.0-0.7); EOS % 9.2 % (0.0-4.0); HEMOGLOBIN 11.6 g/dL (12.0-16.0); LYMPH # 0.8 K/uL (1.0-4.3); MEAN CELL VOLUME 74.6 fl (81.0-99.0); MEAN CORPUSCULAR HEMOGLOBIN 23.9 pg (27.0-31.0); MEAN CORPUSCULAR HGB CONC 32.1 g/dL (33.0-37.0); MONO # 0.6 K/uL (0.0-0.8); MONO % 8.7 % (0.0-10.0); NEUT # 5.3 K/uL (1.8-7.0); NEUT % 70.4 % (50.0-75.0); RBC 4.83 Mil/uL (3.80-5.20); RED CELL DISTRIBUTION WIDTH 16.3 % (11.5-14.5); WHITE BLOOD COUNT 7.5 K/uL (4.8-10.8)
[2017-07-13 08:02] LABS: BLOOD UREA NITROGEN 12 mg/dl (7-17); GFR AFRICAN-AMERICAN > 60; GFR NON-AFRICAN AMERICAN > 60
[2017-07-13 08:03] LABS: CALCIUM 9.6 mg/dL (8.4-10.2)
[2017-07-13] MEDS: Enoxaparin 40 mg Syringe SC SCH (10:16)
[2017-07-13] MEDS: Pantoprazole 40 mg EC Tab PO SCH (10:17)
--- NOTE | 2017-07-13 22:05 | CP.PCM.PN ---
Subjective - Date & Time of Evaluation Date of Evaluation: 07/13/17 Time of Evaluation: 10:05 Objective - Vital Signs/Intake and Output Vital Signs (last 24 hours): Temp Pulse Resp BP Pulse Ox 98.5 F 83 16 107/70 96 07/13/17 20:00 07/13/17 21:43 07/13/17 20:00 07/13/17 21:43 07/13/17 20:00 - Medications Medications: Current Medications Amlodipine Besylate (Norvasc) 10 mg PO DAILY [facility] Last Admin: 07/13/17 10:17 Dose: 10 mg Enoxaparin Sodium (Lovenox) 40 mg SC DAILY [facility] PRN Reason: Protocol Last Admin: 07/13/17 10:16 Dose: 40 mg Ceftriaxone Sodium 1 gm/ (Sodium Chloride) 100 mls @ 100 mls/hr IVPB DAILY [facility] Last Admin: 07/13/17 10:17 Dose: 100 mls/hr Azithromycin 500 mg/ Sodium (Chloride) 250 mls @ 250 mls/hr IVPB DAILY@0600 [facility] PRN Reason: Protocol Last Admin: 07/13/17 05:35 Dose: 250 mls/hr Metoprolol Tartrate (Lopressor) 25 mg PO Q12 [facility] Last Admin: 07/13/17 21:43 Dose: 25 mg Pantoprazole Sodium (Protonix Ec Tab) 40 mg PO DAILY [facility] Last Admin: 07/13/17 10:17 Dose: 40 mg Temazepam (Restoril) 15 mg PO HS [facility] Last Admin: 07/13/17 21:45 Dose: 15 mg Trazodone HCl (Desyrel) 100 mg PO HS [facility] Last Admin: 07/13/17 21:43 Dose: 100 mg - Labs Labs: 07/13/17 06:10 07/13/17 06:10
[2017-07-14] MEDS: Azithromycin 500 MG in Sodium Chloride 0.9% 250 ML IVPB SCH (05:18)
[2017-07-14 08:17] LABS: BASO # 0.1 K/uL (0.0-0.2); EOS # 0.7 K/uL (0.0-0.7); EOS % 9.9 % (0.0-4.0); HEMOGLOBIN 11.2 g/dL (12.0-16.0); LYMPH # 1.1 K/uL (1.0-4.3); LYMPH % 15.7 % (20.0-40.0); MEAN CELL VOLUME 74.2 fl (81.0-99.0); MEAN CORPUSCULAR HEMOGLOBIN 23.3 pg (27.0-31.0); MEAN CORPUSCULAR HGB CONC 31.4 g/dL (33.0-37.0); MEAN PLATELET VOLUME 10.1 fl (7.2-11.7); MONO # 0.9 K/uL (0.0-0.8); MONO % 12.8 % (0.0-10.0); NEUT # 4.2 K/uL (1.8-7.0); NEUT % 60.6 % (50.0-75.0); RBC 4.78 Mil/uL (3.80-5.20); RED CELL DISTRIBUTION WIDTH 16.4 % (11.5-14.5); WHITE BLOOD COUNT 6.9 K/uL (4.8-10.8)
[2017-07-14 08:29] LABS: BLOOD UREA NITROGEN 17 mg/dl (7-17); CALCIUM 9.4 mg/dL (8.4-10.2); GFR AFRICAN-AMERICAN > 60; GFR NON-AFRICAN AMERICAN > 60
[2017-07-14] MEDS: Enoxaparin 40 mg Syringe SC SCH (09:00)
[2017-07-14] MEDS: Pantoprazole 40 mg EC Tab PO SCH (09:00)
--- NOTE | 2017-07-14 17:25 | CP.PCM.PN ---
Subjective - Date & Time of Evaluation Date of Evaluation: 07/14/17 Time of Evaluation: 10:30 Objective - Vital Signs/Intake and Output Vital Signs (last 24 hours): Temp Pulse Resp BP Pulse Ox 98.5 F 83 16 99/68 L 98 07/14/17 16:06 07/14/17 16:06 07/14/17 16:06 07/14/17 16:06 07/14/17 16:06 - Medications Medications: Current Medications Amlodipine Besylate (Norvasc) 10 mg PO DAILY [facility] Last Admin: 07/14/17 09:01 Dose: 10 mg Enoxaparin Sodium (Lovenox) 40 mg SC DAILY [facility] PRN Reason: Protocol Last Admin: 07/14/17 09:00 Dose: 40 mg Ceftriaxone Sodium 1 gm/ (Sodium Chloride) 100 mls @ 100 mls/hr IVPB DAILY [facility] Last Admin: 07/14/17 09:01 Dose: 100 mls/hr Azithromycin 500 mg/ Sodium (Chloride) 250 mls @ 250 mls/hr IVPB DAILY@0600 [facility] PRN Reason: Protocol Last Admin: 07/14/17 05:18 Dose: 250 mls/hr Metoprolol Tartrate (Lopressor) 25 mg PO Q12 [facility] Last Admin: 07/14/17 08:59 Dose: 25 mg Pantoprazole Sodium (Protonix Ec Tab) 40 mg PO DAILY [facility] Last Admin: 07/14/17 09:00 Dose: 40 mg Temazepam (Restoril) 15 mg PO HS [facility] Last Admin: 07/13/17 21:45 Dose: 15 mg Trazodone HCl (Desyrel) 100 mg PO HS [facility] Last Admin: 07/13/17 21:43 Dose: 100 mg - Labs Labs: 07/14/17 06:20 07/14/17 06:20
[2017-07-15 00:42] VITALS: RESP 18
[2017-07-15 05:31] LABS: BASO # 0.1 K/uL (0.0-0.2); EOS # 0.7 K/uL (0.0-0.7); EOS % 9.8 % (0.0-4.0); HEMOGLOBIN 11.8 g/dL (12.0-16.0); LYMPH # 1.5 K/uL (1.0-4.3); LYMPH % 19.8 % (20.0-40.0); MEAN CELL VOLUME 74.6 fl (81.0-99.0); MEAN CORPUSCULAR HEMOGLOBIN 23.6 pg (27.0-31.0); MEAN CORPUSCULAR HGB CONC 31.6 g/dL (33.0-37.0); MEAN PLATELET VOLUME 9.9 fl (7.2-11.7); MONO # 0.8 K/uL (0.0-0.8); MONO % 10.5 % (0.0-10.0); NEUT # 4.5 K/uL (1.8-7.0); NEUT % 58.9 % (50.0-75.0); RBC 4.99 Mil/uL (3.80-5.20); RED CELL DISTRIBUTION WIDTH 16.4 % (11.5-14.5); WHITE BLOOD COUNT 7.6 K/uL (4.8-10.8)
[2017-07-15 05:38] LABS: BLOOD UREA NITROGEN 19 mg/dl (7-17); CALCIUM 9.7 mg/dL (8.4-10.2); GFR AFRICAN-AMERICAN > 60; GFR NON-AFRICAN AMERICAN > 60
[2017-07-15] MEDS: Azithromycin 500 MG in Sodium Chloride 0.9% 250 ML IVPB SCH (06:13)
[2017-07-15 08:05] VITALS: PULSE 69
[2017-07-15] MEDS: Enoxaparin 40 mg Syringe SC SCH (09:46)
[2017-07-15] MEDS: Pantoprazole 40 mg EC Tab PO SCH (09:47)
--- NOTE | 2017-07-15 11:12 | RAD ---
HISTORY: f/u b/l pna COMPARISON: Chest radiograph dated 07/11/2017 TECHNIQUE: Chest PA and lateral FINDINGS: LUNGS: Known patchy right lower lobe infiltrates not well visualized on the current examination. PLEURA: No significant pleural effusion identified. No pneumothorax apparent. CARDIOVASCULAR: Cardiomediastinal silhouette stably prominent. OSSEOUS STRUCTURES: Unchanged. VISUALIZED UPPER ABDOMEN: Normal. OTHER FINDINGS: None. IMPRESSION: Known patchy right lower lobe infiltrates not well visualized on current examination.
[2017-07-15 12:14] VITALS: BP 121/79; TEMP 98.1; O2SAT 100
--- NOTE | 2017-07-15 12:14 | PQF GENQUE ---
Dr. Wang, 1. Please specify type of pneumonia in the progress notes: if in agreement with the dx. versus pneumoia ruled out ( Note: CAP, HAP, and HCAP indicate where the pneumonia was acquired, not a specific type) i.e. Aspiration pneumonia Please document specific aspirate (food, liquids, etc.) Please indicate if this is postprocedural Bacterial (specify organism) Bronchopneumonia (specify organism) Interstitual pneumonia Organizing pneumonia/BOOP Pneumonia with influenza, omid flu, or H1N1 flu RSV pneumonia Tuberculosis, pulmonary Viral pneumonia Other pneumonia (specify organism or type) Clinically unable to determine Unknown Note: Probable and suspected conditions can be coded as if they exist if still documented at the time of discharge. 2. Please specify the organism causing the pneumonia: if known after the work- up is completed ER note: homeless: Clinical Impression: Patient has evidence of bilateral PNA on chest CT. Given age and lack of PMD and bilateral PNA, will admit for IV ABx , CAP IV: Rocephin and Zithromax This form is a permanent part of the medical record Clarification of your documentation is requested to better reflect the severity of illness and intensity of treatment of your patient. Indicators present [] Specify: [] [] Specify: [] [] Specify: [] [] Specify: [] Location in the medical record that reflects the above clinical findings: [] Treatment Provided: [] PHYSICIAN'S RESPONSE Based on your medical judgment of the clinical indicators outlined above please clarify the following: [] Practitioner response [] If unable to determine, please check the box, sign and date. Present On Admission (POA) Indicator: [] Present at the time of admission [] Not present at the time of admission [] Clinically Undetermined In responding to this query, please exercise your independent professional judgment. The fact that a question is asked does not imply that any particular answer is desired or expected. Thank you for your clarification on this documentation. If you have any questions please call. * Thank you, Dianelys Solis RN ext. #[phone] MTDD
--- NOTE | 2017-07-15 12:21 | PQF GENQUE ---
Dr. Wang, 2 queries: 1. Please provide a nutritional diagnosis, if known, related to the information below: i.e thin, or small frame etc. The following clinical indicators are present in the medical record: BMI:19.5 5 ft 100lb 2. Please include the BMI in your next progress note if known OR: Disagree OR: Unable to determine This form is a permanent part of the medical record Clarification of your documentation is requested to better reflect the severity of illness and intensity of treatment of your patient. Indicators present [] Specify: [] [] Specify: [] [] Specify: [] [] Specify: [] Location in the medical record that reflects the above clinical findings: [] Treatment Provided: [] PHYSICIAN'S RESPONSE Based on your medical judgment of the clinical indicators outlined above please clarify the following: [] Practitioner response [] If unable to determine, please check the box, sign and date. Present On Admission (POA) Indicator: [] Present at the time of admission [] Not present at the time of admission [] Clinically Undetermined In responding to this query, please exercise your independent professional judgment. The fact that a question is asked does not imply that any particular answer is desired or expected. Thank you for your clarification on this documentation. If you have any questions please call. * Thank you, Dianelys Solis RN ext. #[phone] MTDD
--- NOTE | 2017-07-16 19:01 | CP.PCM.DIS ---
Provider - Provider Date of Admission: 07/12/17 05:26 Attending physician: Dank Wang MD Time Spent in preparation of Discharge (in minutes): 25 Hospital Course - Lab Results Lab Results: Most Recent Lab Values WBC 7.6 K/uL (4.8-10.8) 07/15/17 04:15 RBC 4.99 Mil/uL (3.80-5.20) 07/15/17 04:15 Hgb 11.8 g/dL (12.0-16.0) L 07/15/17 04:15 Hct 37.3 % (34.0-47.0) 07/15/17 04:15 MCV 74.6 fl (81.0-99.0) L 07/15/17 04:15 MCH 23.6 pg (27.0-31.0) L 07/15/17 04:15 MCHC 31.6 g/dL (33.0-37.0) L 07/15/17 04:15 RDW 16.4 % (11.5-14.5) H 07/15/17 04:15 Plt Count 320 K/uL (130-400) 07/15/17 04:15 MPV 9.9 fl (7.2-11.7) 07/15/17 04:15 Neut % (Auto) 58.9 % (50.0-75.0) 07/15/17 04:15 Lymph % (Auto) 19.8 % (20.0-40.0) L 07/15/17 04:15 [place] % (Auto) 10.5 % (0.0-10.0) H 07/15/17 04:15 Eos % (Auto) 9.8 % (0.0-4.0) H 07/15/17 04:15 Baso % (Auto) 1.0 % (0.0-2.0) 07/15/17 04:15 Neut # (Auto) 4.5 K/uL (1.8-7.0) 07/15/17 04:15 Lymph # (Auto) 1.5 K/uL (1.0-4.3) 07/15/17 04:15 [place] # (Auto) 0.8 K/uL (0.0-0.8) 07/15/17 04:15 Eos # (Auto) 0.7 K/uL (0.0-0.7) 07/15/17 04:15 Baso # (Auto) 0.1 K/uL (0.0-0.2) 07/15/17 04:15 D-Dimer, Quantitative 309 ng/mlDDU (0-230) H 07/11/17 21:50 pO2 50 mm/Hg (30-55) 07/12/17 05:53 VBG pH 7.36 (7.32-7.43) 07/12/17 05:53 VBG pCO2 49 mmHg (40-60) 07/12/17 05:53 VBG HCO3 25.7 mmol/L 07/12/17 05:53 VBG Total CO2 29.2 mmol/L (22-28) H 07/12/17 05:53 VBG O2 Sat (Calc) 89.1 % (40-65) H 07/12/17 05:53 VBG Base Excess 1.5 mmol/L (0.0-2.0) 07/12/17 05:53 VBG Potassium 3.9 mmol/L (3.6-5.2) 07/12/17 05:53 Sodium 137.0 mmol/L (132-148) 07/12/17 05:53 Chloride 109.0 mmol/L (98-107) H 07/12/17 05:53 Glucose 102 mg/dL (65-105) 07/12/17 05:53 Lactate 1.1 mmol/L (0.7-2.1) 07/12/17 05:53 FiO2 21.0 % 07/12/17 05:53 Sodium 143 mmol/l (132-148) 07/15/17 04:15 Potassium 4.4 MMOL/L (3.6-5.0) 07/15/17 04:15 Chloride 102 mmol/L (98-107) 07/15/17 04:15 Carbon Dioxide 29 mmol/L (22-30) 07/15/17 04:15 Anion Gap 16 (10-20) 07/15/17 04:15 BUN 19 mg/dl (7-17) H 07/15/17 04:15 Creatinine 0.7 mg/dl (0.7-1.2) 07/15/17 04:15 Est GFR ( Amer) > 60 07/15/17 04:15 Est GFR (Non-Af Amer) > 60 07/15/17 04:15 Random Glucose 95 mg/dL (65-105) 07/15/17 04:15 Calcium 9.7 mg/dL (8.4-10.2) 07/15/17 04:15 Magnesium 2.1 MG/DL (1.6-2.3) 07/13/17 06:10 Troponin I < 0.0120 ng/mL (0.00-0.120) 07/11/17 22:20 TSH 3rd Generation 1.73 mIU/ML (0.46-4.68) 07/14/17 06:20 Venous Blood Potassium 3.9 mmol/L (3.6-5.2) 07/12/17 05:53 Discharge Exam - Head Exam Head Exam: ATRAUMATIC, NORMAL INSPECTION, NORMOCEPHALIC Discharge Plan - Discharge Medications Prescriptions: cefTRIAXone 1 gm [Rocephin 1 gram IVPB] 1 gm IVPB DAILY #7 bag Azithromycin 500MG/NS 250ml [Zithromax 500mg in NS] 500 mg IV DAILY #7 bag - Follow Up Plan Condition: SERIOUS Disposition: TRANSF TO SNF Additional Instructions: pt. cleared for discharge to TCU today by , cont. Rocephin and Zithromax iv x 1 week cont. to f/u with Referrals: Dank Wang MD [Staff Provider] -
== END 2017-07-15 15:00 | DRG 194 ==
LOC: H.ER 20:41 → OBSVTOIN 07-12 05:26 → H.ERHOLD 07-12 05:26 → H.TEL 07-12 09:15
PROVIDERS: ADMIT Internal Medicine; ATTEND Internal Medicine
DX: J15.9 Unspecified bacterial pneumonia (principal); Z68.1 Body mass index [BMI] 19.9 or less, adult; J44.0 Chronic obstructive pulmonary disease with (acute) lower respiratory infection; I10 Essential (primary) hypertension; K80.20 Calculus of gallbladder without cholecystitis without obstruction; Z59.0 Homelessness; F32.9 Major depressive disorder, single episode, unspecified; F41.9 Anxiety disorder, unspecified; Z79.899 Other long term (current) drug therapy